=== PATIENT | male | born 1955 | race American Indian/Alaskan Native ===

== ENCOUNTER 2017-05-21 16:51 | Emergency (ER) | payer MEDICARE ==
[~2017-05-21] VITALS: Ht 170.2 cm; Wt 65.8 kg
[~2017-05-21 16:51] MED LIST: ACET325 PO; ASPI81EC PO; CRUTCH3 USE; CYCL10 PO; DIAZ5 PO; HYDACE5 PO; IBUP400 PO; IBUP600 PO; IBUP800 PO; LEVFLO500 PO; METCAR500 PO; NAPR500 PO; OTC COLD MED; PRED20 PO; SULTRISS PO; TRAM50 PO; Ultram50 MG PO; Zofran4 MG PO
[2017-05-21] MEDS ORDERED: CLEAR EYES COOL15 ML TOP (18:00)
[2018-02-28] MEDS ORDERED: ERYT1OIN LEFTEYE (18:00)
== END 2017-05-21 18:10 | disposition home or self-care (01) ==
LOC: ER 16:51
DX: H04.209 Unspecified epiphora, unspecified side (principal); F17.200 Nicotine dependence, unspecified, uncomplicated
CPT/HCPCS: 99282

== ENCOUNTER 2018-07-20 18:09 | Emergency (ER) | payer MEDICARE ==
[~2018-07-20] VITALS: Ht 162.6 cm; Wt 68.0 kg
[~2018-07-20 18:09] MED LIST changes: +CLEAR EYES COOL15 ML TOP; +ERYT1OIN LEFTEYE
[2018-07-20] MEDS ORDERED: EAR WAX DROPS15 ML RIGHTEAR (18:38)
== END 2018-07-20 18:41 | disposition home or self-care (01) ==
LOC: ER 18:09
DX: H61.21 Impacted cerumen, right ear (principal); F17.210 Nicotine dependence, cigarettes, uncomplicated
CPT/HCPCS: 69210; 99283

== ENCOUNTER 2018-09-22 17:14 | Emergency (ER) | payer MEDICARE ==
[~2018-09-22] VITALS: Ht 170.2 cm; Wt 61.2 kg
[~2018-09-22 17:14] MED LIST changes: +EAR WAX DROPS15 ML RIGHTEAR
[2018-09-22 17:53] LABS: BASOPHILS ABSOLUTE AUTO 0.07 K/mm3 (0.00-0.23); BASOPHILS PERCENT AUTO 1 % (0-2); EOSINOPHILS ABSOLUTE AUTO 0.45 K/mm3 (0.00-0.68); EOSINOPHILS PERCENT AUTO 5 % (0-6); Hematocrit 47.4 % (37.0-53.0); Hemoglobin 15.3 g/dL (13.5-17.5); IMMATURE GRAN ABSOLUTE AUTO 0.02 K/mm3 (0.00-0.10); IMMATURE GRAN PERCENT AUTO 0 % (0-1); LYMPHOCYTES ABSOLUTE AUTO 3.67 K/mm3 (0.84-5.20); LYMPHOCYTES PERCENT AUTO 42 % (21-46); MONOCYTES ABSOLUTE AUTO 0.68 K/mm3 (0.16-1.47); MONOCYTES PERCENT AUTO 8 % (4-13); Mean Corpuscular HGB Conc 32.3 g/dL (31.5-36.5); Mean Corpuscular Volume 96 fL (80-100); Mean Platelet Volume 10.9 fL (9.1-12.4); NEUTROPHILS ABSOLUTE AUTO 3.84 K/mm3 (1.96-9.15); NEUTROPHILS PERCENT AUTO 44 % (41-73); Platelet Count 244 K/mm3 (150-400); RDW Coefficient Variation 13.7 % (11.7-14.2); RDW Standard Deviation 48.9 fL (35.1-46.3); Red Blood Cell Count 4.93 M/mm3 (4.30-5.90); White Blood Cell Count 8.73 K/mm3 (4.00-11.30)
[2018-09-22 18:31] LABS: Alanine Aminotransfer (ALT/SGP 28 U/L (12-78); Albumin, Blood 4.1 g/dL (3.4-5.0); Alk Phos 78 U/L (50-136); Anion Gap 5 mmol/L (6-16); Aspartate Aminotrans (AST/SGOT 21 U/L (12-37); Bilirubin, Total 0.2 mg/dL (0.1-1.0); Blood Urea Nitrogen 13 mg/dL (8-24); Bun/Creatinine Ratio 22.5 (12.0-20.0); CO2, Blood 29 mmol/L (21-32); Calcium, Blood 9.2 mg/dL (8.5-10.1); Chloride, Blood 106 mmol/L (98-108); Creatinine, Blood 0.58 mg/dL (0.60-1.20); Globulin, Blood 4.1 g/dL (2.2-4.0); Glomerular Filtration Rate >60 (60-); Glucose, Blood 95 mg/dL (70-99); Potassium, Blood 3.9 mmol/L (3.5-5.5); Sodium, Blood 140 mmol/L (136-145); Total Protein, Blood 8.2 g/dL (6.4-8.2); Troponin I <0.015 ng/mL (0.000-0.040)
== END 2018-09-22 19:00 | disposition home or self-care (01) ==
LOC: ER 17:14
PROVIDERS: Physician Assistant
DX: R07.9 Chest pain, unspecified (principal); M54.5 Low back pain; M54.2 Cervicalgia; G89.29 Other chronic pain; F17.210 Nicotine dependence, cigarettes, uncomplicated
CPT/HCPCS: 71046; 80053; 84484; 85025; 93005; 93010; 99285-25

== ENCOUNTER 2019-11-06 06:25 | Emergency (ER) | payer MEDICARE ==
[~2019-11-06] VITALS: Ht 167.6 cm; Wt 72.6 kg
== END 2019-11-06 07:49 | disposition home or self-care (01) ==
LOC: ER 06:25
DX: H02.89 Other specified disorders of eyelid (principal); F17.210 Nicotine dependence, cigarettes, uncomplicated
CPT/HCPCS: 99283

== ENCOUNTER 2020-02-26 18:26 | Emergency (ER) | payer MEDICARE ==
[~2020-02-26] VITALS: Ht 167.6 cm; Wt 79.4 kg
[2020-02-27] MEDS ORDERED: AMOCLA875 PO (11:06)
[2020-02-27] MEDS ORDERED: Norco 5-325 Ta1 EACH PO (11:18)
== END 2020-02-26 20:26 | disposition left against medical advice (07) ==
LOC: ER 18:26
DX: R51.9 Headache, unspecified (principal); R42 Dizziness and giddiness; Z53.21 Procedure and treatment not carried out due to patient leaving prior to being seen by health care provider
CPT/HCPCS: 70486; 99284-25

== ENCOUNTER 2020-02-27 08:53 | Emergency (ER) | payer MEDICARE ==
[~2020-02-27] VITALS: Ht 167.6 cm; Wt 72.6 kg
[2020-02-27] MEDS ORDERED: AMOCLA875 PO (11:06)
[2020-02-27] MEDS ORDERED: Norco 5-325 Ta1 EACH PO (11:18)
== END 2020-02-27 11:56 | disposition home or self-care (01) ==
LOC: ER 08:53
DX: S02.841A Fracture of lateral orbital wall, right side, initial encounter for closed fracture (principal); S02.31XA Fracture of orbital floor, right side, initial encounter for closed fracture; S02.40CA Maxillary fracture, right side, initial encounter for closed fracture; S02.40EA Zygomatic fracture, right side, initial encounter for closed fracture; F17.210 Nicotine dependence, cigarettes, uncomplicated; W51.XXXA Accidental striking against or bumped into by another person, initial encounter; Y92.59 Other trade areas as the place of occurrence of the external cause
CPT/HCPCS: 99283

== ENCOUNTER 2020-03-04 15:56 | Emergency (ER) | payer MEDICARE ==
[~2020-03-04] VITALS: Ht 167.6 cm; Wt 68.0 kg
[~2020-03-04 15:56] MED LIST changes: +AMOCLA875 PO; +Norco 5-325 Ta1 EACH PO
== END 2020-03-04 20:52 | disposition home or self-care (01) ==
LOC: ER 15:56
DX: S00.11XA Contusion of right eyelid and periocular area, initial encounter (principal); F17.210 Nicotine dependence, cigarettes, uncomplicated; X58.XXXA Exposure to other specified factors, initial encounter
CPT/HCPCS: 99282

== ENCOUNTER 2020-05-26 11:22 | Emergency (ER) | payer MEDICARE ==
[~2020-05-26] VITALS: Ht 167.6 cm; Wt 68.0 kg
[2020-05-26] MEDS ORDERED: CEPH500 PO (12:14)
[2020-05-26] MEDS ORDERED: HYDHCL25 PO (12:14)
[2020-05-26] MEDS ORDERED: PERMETHRIN TOP (12:14)
== END 2020-05-26 12:29 | disposition home or self-care (01) ==
LOC: ER 11:22
DX: L30.9 Dermatitis, unspecified (principal); F17.210 Nicotine dependence, cigarettes, uncomplicated
CPT/HCPCS: 99282

== ENCOUNTER 2021-10-29 17:34 | Inpatient (IN) | payer MEDICARE ==
[~2021-10-29] VITALS: Ht 167.6 cm; Wt 81.6 kg
[~2021-10-29 17:34] MED LIST changes: +CEPH500 PO; +HYDHCL25 PO; +PERMETHRIN TOP
[2021-10-29] MEDS ORDERED: ASPI81CH PO (17:50)
[2021-10-29 18:01] LABS: BASOPHILS ABSOLUTE AUTO 0.08 K/mm3 (0.00-0.23); BASOPHILS PERCENT AUTO 1 % (0-2); EOSINOPHILS ABSOLUTE AUTO 0.28 K/mm3 (0.00-0.68); EOSINOPHILS PERCENT AUTO 2 % (0-6); Hematocrit 44.3 % (37.0-53.0); Hemoglobin 14.4 g/dL (13.5-17.5); IMMATURE GRAN ABSOLUTE AUTO 0.03 K/mm3 (0.00-0.10); IMMATURE GRAN PERCENT AUTO 0 % (0-1); LYMPHOCYTES ABSOLUTE AUTO 1.95 K/mm3 (0.84-5.20); LYMPHOCYTES PERCENT AUTO 15 % (21-46); MONOCYTES PERCENT AUTO 6 % (4-13); Mean Corpuscular HGB 29.9 pg (26.0-34.0); Mean Corpuscular HGB Conc 32.5 g/dL (31.5-36.5); Mean Corpuscular Volume 92 fL (80-100); Mean Platelet Volume 10.8 fL (9.1-12.4); NEUTROPHILS ABSOLUTE AUTO 9.74 K/mm3 (1.96-9.15); NEUTROPHILS PERCENT AUTO 76 % (41-73); Platelet Count 245 K/mm3 (150-400); RDW Coefficient Variation 13.3 % (11.7-14.2); RDW Standard Deviation 45.3 fL (35.1-46.3); Red Blood Cell Count 4.82 M/mm3 (4.30-5.90); White Blood Cell Count 12.88 K/mm3 (4.00-11.30)
[2021-10-29 18:15] LABS: Albumin, Blood 3.7 g/dL (3.4-5.0); Bilirubin, Total 0.3 mg/dL (0.1-1.0); Bun/Creatinine Ratio 14.6 (12.0-20.0); Calcium, Blood 9.6 mg/dL (8.5-10.1); Creatinine, Blood 0.89 mg/dL (0.60-1.20); Globulin, Blood 3.8 g/dL (2.2-4.0); Potassium, Blood 3.6 mmol/L (3.5-5.5); Total Protein, Blood 7.5 g/dL (6.4-8.2)
[2021-10-29 22:39] LABS: Prothrombin Time Results 11.5 Sec (9.7-11.5)
[2021-10-29 22:40] LABS: Anti-Xa UFH, PHA Monitoring >1.50 IU/mL
--- NOTE | 2021-10-30 04:37 | NUR ---
shift summary pt rested well through the night. alert and oriented, able to make needs known. cooperative with plan of care. sats >90% on room air. tele reads nsr 68. no c/o chest pain through night, although nitro tablets at bedside in case. vss. independent in room. been npo since midnight for possible angio. cardiology consulted, and planning for echo in am. call light within reach, bed in lowest position. will continue to monitor.
[2021-10-30 04:44] LABS: BASOPHILS ABSOLUTE AUTO 0.05 K/mm3 (0.00-0.23); BASOPHILS PERCENT AUTO 0 % (0-2); EOSINOPHILS ABSOLUTE AUTO 0.19 K/mm3 (0.00-0.68); EOSINOPHILS PERCENT AUTO 2 % (0-6); Hematocrit 37.8 % (37.0-53.0); Hemoglobin 12.5 g/dL (13.5-17.5); IMMATURE GRAN ABSOLUTE AUTO 0.03 K/mm3 (0.00-0.10); IMMATURE GRAN PERCENT AUTO 0 % (0-1); LYMPHOCYTES ABSOLUTE AUTO 2.53 K/mm3 (0.84-5.20); LYMPHOCYTES PERCENT AUTO 20 % (21-46); MONOCYTES ABSOLUTE AUTO 0.82 K/mm3 (0.16-1.47); MONOCYTES PERCENT AUTO 7 % (4-13); Mean Corpuscular HGB 30.4 pg (26.0-34.0); Mean Corpuscular HGB Conc 33.1 g/dL (31.5-36.5); Mean Corpuscular Volume 92 fL (80-100); Mean Platelet Volume 10.6 fL (9.1-12.4); NEUTROPHILS ABSOLUTE AUTO 8.91 K/mm3 (1.96-9.15); NEUTROPHILS PERCENT AUTO 71 % (41-73); Platelet Count 207 K/mm3 (150-400); RDW Coefficient Variation 13.3 % (11.7-14.2); RDW Standard Deviation 45.1 fL (35.1-46.3); Red Blood Cell Count 4.11 M/mm3 (4.30-5.90); White Blood Cell Count 12.53 K/mm3 (4.00-11.30)
[2021-10-30 05:03] LABS: Albumin, Blood 3.2 g/dL (3.4-5.0); Bilirubin, Total 0.5 mg/dL (0.1-1.0); Bun/Creatinine Ratio 22.7 (12.0-20.0); Calcium, Blood 8.7 mg/dL (8.5-10.1); Creatinine, Blood 0.84 mg/dL (0.60-1.20); Globulin, Blood 3.2 g/dL (2.2-4.0); Total Protein, Blood 6.4 g/dL (6.4-8.2)
[2021-10-30 05:19] LABS: Creatine Kinase MB 28.4 ng/mL (0.0-3.6); Creatine Kinase MB Index 7.9 (0.0-4.0)
--- NOTE | 2021-10-30 07:34 | NUR ---
CARE ASSUMPTION PT A&O X4. VSS. SPO2 > 92% ON RA. MONITOR SHOWING SB, HR 50's. PT STATES LAST EPISODE OF CHEST PAIN "YESTERDAY" & REPORTS CURRENT 05/19 "SORE" SENSATION IN LEFT UPPER CHEST. PT STATING "IT'S NOTHING LIKE IT WAS YESTERDAY. PT NPO FOR POSSIBLE ANGIO TODAY. HEPARIN GTT INFUSING PER ORDERS.
--- NOTE | 2021-10-30 10:38 | NUR ---
Echocardiogram completed.
[2021-10-30 10:47] LABS: SARS-Cov-2 (COVID-19) PCR, MMC NEGATIVE (NEGATIVE)
--- NOTE | 2021-10-30 11:02 | NUR ---
GONE TO PROCEDURE PT GONE TO DIRECTOR OF HOUSING FOR ANGIO @ APPROX 1030.
--- NOTE | 2021-10-30 13:27 | NUR ---
RETURN FROM PROCEDURE PT BROUGHT BACK TO RM @ APPROX 1230. PT A&O X4, SLIGHTLY DROWSY. R RADIAL SITE W/ TR BAND IN PLACE W/ SOME BLEEDING FROM SITE OBSERVED W/ HC STAFF. NO NEW BLEEDING NOTED. PT C/O 5/10 CHEST PAIN ON ARRIVAL BACK TO UNIT, THEN REPORTING PAIN INCREASE TO "SHARP" 8/10 L CHEST PAIN. 25MCG PRN IV FENTANYL GIVEN PER EMAR. PT THEN SNORING SHORTLY AFTER ADMINISTRATION. CALL TO MD HAMILTON TO VERIFY HEPARIN GTT CONTINUATION W/ INSTRUCTION TO DC HEPARIN GTT. 1L NS GTT INFUSING PER ORDERS. MD HAMILTON ALSO MADE AWARE OF PT CONTINUED CP W/ INSTRUCTION FOR POST ANGIO EKG. EKG DONE & PLACED IN CHART. PT FAMILY/FRIENDS AT BEDSIDE.
--- NOTE | 2021-10-30 17:39 | NUR ---
SHIFT SUMMARY PT A&O X4. VSS. SPO2 > 92% ON RA. MONITOR SHOWING HR 45-70's. PT GONE FOR ANGIO THIS AM, BACK THIS AFTERNOON W/ R RADIAL ACCESS SITE W/ TR BAND & ARM BOARD IN PLACE. TR BAND RECOVERED WNL THIS SHIFT, NOW REMOVED W/ TRANSPARENT DRESSING IN PLACE & ARM BOARD IN PLACE. PT CONTINUES TO C/O CHEST PAIN. CHEST PAIN UP TO 8/10 POST ANGIO, MEDICATED W/ PRN IV FENTANYL PER EMAR W/ PT REPORT OF PAIN DECREASE TO 3/10. PT NOW REPORTING CP DOWN TO 2/10. PRN PO TYLENOL GIVEN PER EMAR/PT REQUEST. HEPARIN GTT DC'd POST ANGIO PER MD ORDER. NS GTT INFUSING PER ORDER. BED ALARM ON D/T PT GETTING OOB W/OUT ASSISTANCE & GETTING CAUGHT IN CORDS/LINES. PT ALSO REQUIRING REMINDING OF R WRIST RESTRICTIONS POST ANGIO.
[2021-10-31 03:48] LABS: BASOPHILS ABSOLUTE AUTO 0.03 K/mm3 (0.00-0.23); BASOPHILS PERCENT AUTO 0 % (0-2); EOSINOPHILS ABSOLUTE AUTO 0.15 K/mm3 (0.00-0.68); EOSINOPHILS PERCENT AUTO 1 % (0-6); Hematocrit 36.4 % (37.0-53.0); IMMATURE GRAN ABSOLUTE AUTO 0.02 K/mm3 (0.00-0.10); IMMATURE GRAN PERCENT AUTO 0 % (0-1); LYMPHOCYTES ABSOLUTE AUTO 2.12 K/mm3 (0.84-5.20); LYMPHOCYTES PERCENT AUTO 19 % (21-46); MONOCYTES ABSOLUTE AUTO 0.87 K/mm3 (0.16-1.47); MONOCYTES PERCENT AUTO 8 % (4-13); Mean Corpuscular HGB 30.5 pg (26.0-34.0); Mean Corpuscular Volume 92 fL (80-100); Mean Platelet Volume 10.9 fL (9.1-12.4); NEUTROPHILS ABSOLUTE AUTO 7.73 K/mm3 (1.96-9.15); NEUTROPHILS PERCENT AUTO 71 % (41-73); Platelet Count 178 K/mm3 (150-400); RDW Coefficient Variation 13.2 % (11.7-14.2); RDW Standard Deviation 45.1 fL (35.1-46.3); Red Blood Cell Count 3.94 M/mm3 (4.30-5.90); White Blood Cell Count 10.92 K/mm3 (4.00-11.30)
[2021-10-31 04:05] LABS: Bun/Creatinine Ratio 21.8 (12.0-20.0); Calcium, Blood 8.5 mg/dL (8.5-10.1); Creatinine, Blood 0.6 mg/dL (0.60-1.20); Potassium, Blood 4.2 mmol/L (3.5-5.5)
--- NOTE | 2021-10-31 05:27 | NUR ---
SHIFT SUMMARY PT RESTED WELL THROUGH THE NIGHT. ALERT AND ORIENTED, ABLE TO MAKE NEEDS KNOWN. COOPERATIVE WITH PLAN OF CARE. SATS >90% ON ROOM AIR. TELE READS SINUS KELLEN/NSR. NO C/O CHEST PAIN. R RADIAL SITE LOOKS C/D/I. VOIDING INDEPENDENTLY IN ROOM. MORNING CXR IN CHART. VSS. CALL LIGHT WITHIN REACH, BED IN LOWEST POSITION. WILL CONTINUE TO MONITOR.
[2021-10-31] MEDS ORDERED: ATOR40TA PO (13:37)
[2021-10-31] MEDS ORDERED: CLOP75 PO (13:38)
[2021-10-31] MEDS ORDERED: Prinivil10 MG PO (13:39)
[2021-10-31] MEDS ORDERED: NICO21TP TOP (13:40)
[2021-10-31] MEDS ORDERED: METO50ER PO (13:40)
[2021-10-31] MEDS ORDERED: NITR.4SL SL (13:42)
--- NOTE | 2021-10-31 17:20 | NUR ---
DISHCARGE SUMMARY: PATIENT HAS BEEN WHEELED OUT BY [facility] AT 1408. PATIENT ACCOMPANIED BY FRIENDS, PATIENT AND FRIENDS COMPLETELY UNDERSTOOD DISCHARGE INSTRUCTIONS COMPLETELY WITH NO FURTHER QUESTIONS COMMENTS OR CONCERNS. PATIENT HAS NO CHEST PIAIN, SOB, IS ANXIOUS NAD EXCITED TO LEAVE. PATIENT IS AWAITING A CALLBACK FROM [facility] FOR PCP VISIT WITH PUJA BARRIENTOS UNDERSTOOD THE IMPORTANCE OF MEDICATION ADHERENCE. PATIENT HAD IV'S REMOVED AND TELEMETRY REMOVED, NO FURTHER CONCERNS FROM PATIENT OR THIS ELECTRIC PILE DRIVER OPERATOR.
== END 2021-10-31 14:16 | disposition home or self-care (01) | DRG 247 ==
LOC: ER 17:34 → PCU 21:11
PROVIDERS: Family Medicine; Internal Medicine Cardiovascular Disease; Internal Medicine Interventional Cardiology; Physician Assistant; ADMIT Internal Medicine
PROC: 4A023N7 Measurement of Cardiac Sampling and Pressure, Left Heart, Percutaneous Approach (ICD-10-PCS; principal; 2021-10-30)
PROC: 027034Z Dilation of Coronary Artery, One Artery with Drug-eluting Intraluminal Device, Percutaneous Approach (ICD-10-PCS; 2021-10-30)
PROC: B2151ZZ Fluoroscopy of Left Heart using Low Osmolar Contrast (ICD-10-PCS; 2021-10-30)
PROC: B2111ZZ Fluoroscopy of Multiple Coronary Arteries using Low Osmolar Contrast (ICD-10-PCS; 2021-10-30)
DX: I21.4 Non-ST elevation (NSTEMI) myocardial infarction (principal); Z20.822 Contact with and (suspected) exposure to COVID-19; F17.210 Nicotine dependence, cigarettes, uncomplicated; G89.29 Other chronic pain; M54.9 Dorsalgia, unspecified; I25.10 Atherosclerotic heart disease of native coronary artery without angina pectoris; M54.2 Cervicalgia; Z71.6 Tobacco abuse counseling; Z79.82 Long term (current) use of aspirin
CPT/HCPCS: 36415; 71045; 76937; 80048; 80053; 82550; 82553; 84484; 85025; 85347; 85520; 85610; 92978; 93005; 93010; 93306; 93458; 96374; 96375; 96376; 99152; 99153; 99285-25; A9270; C1725; C1753; C1761; C1769; C1874; C1887; C1894; C9600; G0378; J0461; J1644; J1885; J2250; J2405; J3010; J7030; J7040; Q9967; U0004

== ENCOUNTER 2022-01-18 23:55 | Emergency (ER) | payer MEDICARE ==
[~2022-01-18] VITALS: Ht 170.2 cm; Wt 86.2 kg
[~2022-01-18 23:55] MED LIST changes: +ASPI81CH PO; +ATOR40TA PO; +CLOP75 PO; +METO50ER PO; +NICO21TP TOP; +NITR.4SL SL; +Prinivil10 MG PO
== END 2022-01-19 01:45 | disposition home or self-care (01) ==
LOC: ER 23:55
DX: T44.7X1A Poisoning by beta-adrenoreceptor antagonists, accidental (unintentional), initial encounter (principal)
CPT/HCPCS: 99283

== ENCOUNTER 2022-03-11 15:01 | Emergency (ER) | payer MEDICARE ==
[~2022-03-11] VITALS: Ht 170.2 cm; Wt 90.7 kg
== END 2022-03-11 15:57 | disposition home or self-care (01) ==
LOC: ER 15:01
DX: H61.23 Impacted cerumen, bilateral (principal); F17.210 Nicotine dependence, cigarettes, uncomplicated; Z79.899 Other long term (current) drug therapy; Z79.82 Long term (current) use of aspirin
CPT/HCPCS: A9270

== ENCOUNTER → 2022-06-15 | Outpatient (CLI) | payer MEDICARE ==
[2022-06-15 18:38] LABS: BASOPHILS ABSOLUTE AUTO 0.08 K/mm3 (0.00-0.23); BASOPHILS PERCENT AUTO 1 % (0-2); EOSINOPHILS ABSOLUTE AUTO 0.79 K/mm3 (0.00-0.68); EOSINOPHILS PERCENT AUTO 8 % (0-6); Hematocrit 41.9 % (37.0-53.0); Hemoglobin 13.4 g/dL (13.5-17.5); IMMATURE GRAN ABSOLUTE AUTO 0.02 K/mm3 (0.00-0.10); IMMATURE GRAN PERCENT AUTO 0 % (0-1); LYMPHOCYTES ABSOLUTE AUTO 2.19 K/mm3 (0.84-5.20); LYMPHOCYTES PERCENT AUTO 21 % (21-46); MONOCYTES ABSOLUTE AUTO 0.94 K/mm3 (0.16-1.47); MONOCYTES PERCENT AUTO 9 % (4-13); Mean Corpuscular HGB 29.6 pg (26.0-34.0); Mean Corpuscular Volume 93 fL (80-100); Mean Platelet Volume 12.3 fL (9.1-12.4); NEUTROPHILS PERCENT AUTO 61 % (41-73); Platelet Count 233 K/mm3 (150-400); RDW Coefficient Variation 14.5 % (11.7-14.2); Red Blood Cell Count 4.53 M/mm3 (4.30-5.90); White Blood Cell Count 10.42 K/mm3 (4.00-11.30)
[2022-06-15 21:17] LABS: Albumin, Blood 3.6 g/dL (3.4-5.0); Bilirubin, Total 0.4 mg/dL (0.1-1.0); Bun/Creatinine Ratio 23.7 (12.0-20.0); Calcium, Blood 9.3 mg/dL (8.5-10.1); Creatinine, Blood 0.76 mg/dL (0.60-1.20); Globulin, Blood 3.5 g/dL (2.2-4.0); Potassium, Blood 4.2 mmol/L (3.5-5.5); Total Protein, Blood 7.1 g/dL (6.4-8.2)
== END | disposition home or self-care (01) ==
LOC: LAB 15:45 → LAB SHORT 15:45
PROVIDERS: Nurse Practitioner Family
DX: I10 Essential (primary) hypertension (principal); R73.03 Prediabetes
CPT/HCPCS: 80053; 83036; 85025

== ENCOUNTER 2022-10-27 22:51 | Emergency (ER) | payer MEDICARE ==
[~2022-10-27] VITALS: Ht 167.6 cm; Wt 74.8 kg
[2022-10-28 01:36] VITALS: BP 112/73
[2022-10-28] MEDS ORDERED: BENZ100A PO (01:56)
[2022-10-28] MEDS ORDERED: PRED20 PO (01:56)
== END 2022-10-28 02:09 | disposition home or self-care (01) ==
LOC: ER 22:51
DX: R04.2 Hemoptysis (principal); J20.9 Acute bronchitis, unspecified; J42 Unspecified chronic bronchitis; I25.2 Old myocardial infarction; F17.290 Nicotine dependence, other tobacco product, uncomplicated; Z95.5 Presence of coronary angioplasty implant and graft; Z79.82 Long term (current) use of aspirin; Z79.899 Other long term (current) drug therapy
CPT/HCPCS: 71046; 99283-25; A9270; J7512

== ENCOUNTER → 2023-03-11 | Outpatient (CLI) | payer MEDICARE ==
[~2023-03-11] MED LIST changes: +BENZ100A PO
[2023-03-11 17:54] LABS: BASOPHILS ABSOLUTE AUTO 0.06 K/mm3 (0.00-0.23); BASOPHILS PERCENT AUTO 1 % (0-2); EOSINOPHILS ABSOLUTE AUTO 0.66 K/mm3 (0.00-0.68); EOSINOPHILS PERCENT AUTO 9 % (0-6); Hematocrit 40.4 % (37.0-53.0); Hemoglobin 13.1 g/dL (13.5-17.5); IMMATURE GRAN ABSOLUTE AUTO 0.01 K/mm3 (0.00-0.10); IMMATURE GRAN PERCENT AUTO 0 % (0-1); LYMPHOCYTES ABSOLUTE AUTO 2.44 K/mm3 (0.84-5.20); LYMPHOCYTES PERCENT AUTO 33 % (21-46); MONOCYTES ABSOLUTE AUTO 0.65 K/mm3 (0.16-1.47); MONOCYTES PERCENT AUTO 9 % (4-13); Mean Corpuscular HGB 30.2 pg (26.0-34.0); Mean Corpuscular HGB Conc 32.4 g/dL (31.5-36.5); Mean Corpuscular Volume 93 fL (80-100); NEUTROPHILS ABSOLUTE AUTO 3.67 K/mm3 (1.96-9.15); NEUTROPHILS PERCENT AUTO 49 % (41-73); Platelet Count 215 K/mm3 (150-400); RDW Coefficient Variation 13.6 % (11.7-14.2); RDW Standard Deviation 47.1 fL (35.1-46.3); Red Blood Cell Count 4.34 M/mm3 (4.30-5.90); White Blood Cell Count 7.49 K/mm3 (4.00-11.30)
[2023-03-11 20:48] LABS: Albumin, Blood 3.6 g/dL (3.4-5.0); Albumin/Globulin Ratio 1.1 (0.8-1.8); Bilirubin, Total 0.4 mg/dL (0.1-1.0); Bun/Creatinine Ratio 19.7 (12.0-20.0); Calcium, Blood 9.1 mg/dL (8.5-10.1); Creatinine, Blood 0.76 mg/dL (0.60-1.20); Globulin, Blood 3.3 g/dL (2.2-4.0); Potassium, Blood 4.2 mmol/L (3.5-5.5); Total Protein, Blood 6.9 g/dL (6.4-8.2)
== END ==
LOC: LAB 17:09 → LAB SHORT 17:09
PROVIDERS: Nurse Practitioner Family
DX: I10 Essential (primary) hypertension (principal); R73.01 Impaired fasting glucose
CPT/HCPCS: 80053; 83036; 85025

== ENCOUNTER 2024-01-30 12:11 | Emergency (ER) | payer MEDICARE ==
[~2024-01-30] VITALS: Ht 167.6 cm; Wt 95.2 kg
[~2024-01-30 12:11] MED LIST changes: +AZIT250 PO; +DELTASONE20 MG PO; +LOSARTAN POTASS25 M2 PO; +Ventolin/Prove6.7 GM
[2024-01-30] MEDS ORDERED: Ketorolac Tromethamine 15mg Vial IV ONE (12:45)
[2024-01-30 12:47] LABS: BASOPHILS ABSOLUTE AUTO 0.05 K/mm3 (0.00-0.23); BASOPHILS PERCENT AUTO 1 % (0-2); EOSINOPHILS ABSOLUTE AUTO 0.39 K/mm3 (0.00-0.68); EOSINOPHILS PERCENT AUTO 6 % (0-6); Hematocrit 43.4 % (37.0-53.0); Hemoglobin 14.4 g/dL (13.5-17.5); IMMATURE GRAN ABSOLUTE AUTO 0.01 K/mm3 (0.00-0.10); IMMATURE GRAN PERCENT AUTO 0 % (0-1); LYMPHOCYTES ABSOLUTE AUTO 1.86 K/mm3 (0.84-5.20); LYMPHOCYTES PERCENT AUTO 26 % (21-46); MONOCYTES ABSOLUTE AUTO 0.54 K/mm3 (0.16-1.47); MONOCYTES PERCENT AUTO 8 % (4-13); Mean Corpuscular HGB 30.6 pg (26.0-34.0); Mean Corpuscular HGB Conc 33.2 g/dL (31.5-36.5); Mean Corpuscular Volume 92 fL (80-100); NEUTROPHILS ABSOLUTE AUTO 4.21 K/mm3 (1.96-9.15); NEUTROPHILS PERCENT AUTO 60 % (41-73); Platelet Count 250 K/mm3 (150-400); RDW Coefficient Variation 13.6 % (11.7-14.2); RDW Standard Deviation 46.6 fL (35.1-46.3); White Blood Cell Count 7.06 K/mm3 (4.00-11.30)
[2024-01-30 13:00] LABS: Albumin, Blood 3.5 g/dL (3.4-5.0); Albumin/Globulin Ratio 0.9 (0.8-1.8); Bilirubin, Total 0.7 mg/dL (0.1-1.0); Bun/Creatinine Ratio 19.1 (12.0-20.0); Calcium, Blood 9.7 mg/dL (8.5-10.1); Creatinine, Blood 0.68 mg/dL (0.60-1.20); Globulin, Blood 3.8 g/dL (2.2-4.0); Potassium, Blood 4.1 mmol/L (3.5-5.5); Total Protein, Blood 7.3 g/dL (6.4-8.2)
[2024-01-30 14:00] VITALS: BP 113/58
== END 2024-01-30 14:43 | disposition home or self-care (01) ==
LOC: ER 12:11
PROVIDERS: Student in an Organized Health Care Education/Training Program
DX: S39.011A Strain of muscle, fascia and tendon of abdomen, initial encounter (principal); F17.210 Nicotine dependence, cigarettes, uncomplicated; X58.XXXA Exposure to other specified factors, initial encounter; Z79.02 Long term (current) use of antithrombotics/antiplatelets; Z79.899 Other long term (current) drug therapy
CPT/HCPCS: 74177; 80053; 83690; 85025; 93005; 93010; 96374-59; 99284-25; J1885; Q9967

== ENCOUNTER → 2024-02-03 | Outpatient (CLI) | payer MEDICARE ==
[2024-02-03 22:28] LABS: Cholesterol 88 mg/dL (50-200); HDL Cholesterol 44 mg/dL (>39); LDL/HDL RATIO 0.6; Low Density Lipoprotein Chol 26 mg/dL (0-110); Triglycerides 89 mg/dL (30-160); Very Low Density Lipoprot Chol 17 mg/dL (6-32)
== END | disposition home or self-care (01) ==
LOC: LAB 15:09 → LAB SHORT 15:09
PROVIDERS: Nurse Practitioner Family
DX: E78.5 Hyperlipidemia, unspecified (principal); R73.03 Prediabetes
CPT/HCPCS: 80061; 83036

== ENCOUNTER 2024-05-25 08:19 | Inpatient (IN) | payer MEDICARE ==
[~2024-05-25] VITALS: Ht 167.6 cm; Wt 79.0 kg
[~2024-05-25 08:19] MED LIST changes: -ATOR40TA PO; +ATOR40TA PT
[2024-05-25 10:56] LABS: CORONAVIRUS COVID-19 AG Negative (NEGATIVE); INFLUENZA A AG Positive (NEGATIVE); INFLUENZA B AG Negative (NEGATIVE)
[2024-05-25 11:32] LABS: Albumin, Blood 3.7 g/dL (3.4-5.0); Albumin/Globulin Ratio 0.8 (0.8-1.8); Bun/Creatinine Ratio 27.3 (12.0-20.0); Calcium, Blood 8.6 mg/dL (8.5-10.1); Creatinine, Blood 0.66 mg/dL (0.60-1.20); Globulin, Blood 4.5 g/dL (2.2-4.0); Potassium, Blood 5.9 mmol/L (3.5-5.5); Total Protein, Blood 8.2 g/dL (6.4-8.2)
[2024-05-25 11:33] LABS: BASOPHILS ABSOLUTE AUTO 0.05 K/mm3 (0.00-0.23); BASOPHILS PERCENT AUTO 1 % (0-2); EOSINOPHILS PERCENT AUTO 0 % (0-6); Hematocrit 41.6 % (37.0-53.0); IMMATURE GRAN ABSOLUTE AUTO 0.07 K/mm3 (0.00-0.10); IMMATURE GRAN PERCENT AUTO 1 % (0-1); LYMPHOCYTES ABSOLUTE AUTO 0.68 K/mm3 (0.84-5.20); LYMPHOCYTES PERCENT AUTO 6 % (21-46); MONOCYTES ABSOLUTE AUTO 0.53 K/mm3 (0.16-1.47); MONOCYTES PERCENT AUTO 5 % (4-13); Mean Corpuscular HGB Conc 33.7 g/dL (31.5-36.5); Mean Corpuscular Volume 92 fL (80-100); NEUTROPHILS ABSOLUTE AUTO 9.45 K/mm3 (1.96-9.15); NEUTROPHILS PERCENT AUTO 88 % (41-73); Platelet Count 155 K/mm3 (150-400); RDW Coefficient Variation 13.6 % (11.7-14.2); RDW Standard Deviation 46.5 fL (35.1-46.3); Red Blood Cell Count 4.52 M/mm3 (4.30-5.90); White Blood Cell Count 10.78 K/mm3 (4.00-11.30)
[2024-05-25] MEDS ORDERED: Ipratropium/Albuterol SulF 2.5-0.5MG/3 ML Amp INH SCH ×2 (14:00→14:55)
[2024-05-25] MEDS ORDERED: Ondansetron HCl 2 MG / ML 2ML Vial IV PRN (14:00)
[2024-05-25] MEDS ORDERED: FLU VACC TS2024-25(6MOS UP)/PF 45 MCG/0.5 ML SYRINGE IM PRN (14:00)
[2024-05-25] MEDS ORDERED: NS 1,000 ML IV SCH (14:00)
[2024-05-25] MEDS ORDERED: Albuterol 2.5 MG/3 ML VIAL INH PRN (14:55)
[2024-05-25] MEDS ORDERED: MethylPREDNISolone Sod Succ 125 MG Vial IV SCH (15:00)
[2024-05-25] MEDS ORDERED: Azithromycin 250 MG Tab PO SCH (15:00)
[2024-05-25 15:03] LABS: Source, Urine Clean Catch
[2024-05-25 15:10] LABS: Appearance, Urine Clear (Clear); Bilirubin, Urine Neg (Neg); Blood, Urine 4+ (Neg); Color, Urine Yellow (P-Yellow); Glucose Qualitative, Urine Neg (Neg); Ketones, Urine Neg (Neg); Leukocyte Esterase, Urine Neg (Neg); Nitrite, Urine Neg (Neg); Protein, Urine 2+ (Neg); Urobilinogen, Urine 1+ (Normal)
[2024-05-25 15:17] LABS: Bacteria Rare /hpf; Squamous Epithelial Cells Few /hpf (Few); White Blood Cells, Urine 0-2 /hpf (0-5)
[2024-05-25 18:02] LABS: Base Excess Venous -2.9 mmol/L; Bicarbonate Venous 21.8 mmol/L (24.0-30.0); PCO2 Venous 48.9 mmHg (38-42); pH Blood Venous 7.29 (7.34-7.37)
[2024-05-25 18:18] VITALS: BP 114/67
--- NOTE | 2024-05-25 19:29 | NUR ---
LATE ENTRY- PT ADMIT FROM ED, ALERT AND ORIENTED X3-4, PT STATED YEAR 1925. PT RR 24. BP AND 02 SAT WBL. TEMP SLIGHTLY ELEVATED. DROPLET PRECAUTIONS IN PLACE. BED ALARM ON. PT ORIENTED TO CALL LIGHT. 3L NC. REPORT GIVEN TO LOVE RN. PT IS POOR HISTORIAN DUE TO ILLNESS. INDEPENDENT AT BASELINE
[2024-05-25] MEDS ORDERED: Atorvastatin 40 MG Tab PO SCH (21:00)
[2024-05-25] MEDS ORDERED: Oseltamivir Phosphate 75 MG Cap PO SCH (21:00)
[2024-05-25 21:21] VITALS: BP 118/71
[2024-05-26] VITALS (11 sets, daily range): BP systolic 86–118; BP diastolic 55–102
--- NOTE | 2024-05-26 05:25 | NUR ---
SHIFT SUMMARY PT OX3, NOT ORIENTED TO REASON FOR HOSPITALIZATION. CONFUSED AND FORGETFUL AT TIMES, ESPECIALLY UPON AWAKENING. CONTINUOUS PULSE OX ON, OXYGEN WEANED TO 1L NC WITH SATS 91-94%. SATS DOWN TO 87% ON ROOM AIR. PT HAS A MOIST, NONPRODUCTIVE COUGH. PT CURRENTLY SITTING IN RECLINER CHAIR, CHAIR ALARM IN PLACE, CALL LIGHT WITHIN REACH.
[2024-05-26 06:47] LABS: Hematocrit 41.4 % (37.0-53.0); Hemoglobin 13.4 g/dL (13.5-17.5); Mean Corpuscular HGB 30.8 pg (26.0-34.0); Mean Corpuscular HGB Conc 32.4 g/dL (31.5-36.5); Mean Corpuscular Volume 95 fL (80-100); Mean Platelet Volume 11.3 fL (9.1-12.4); Platelet Count 119 K/mm3 (150-400); RDW Coefficient Variation 13.5 % (11.7-14.2); RDW Standard Deviation 47.8 fL (35.1-46.3); Red Blood Cell Count 4.35 M/mm3 (4.30-5.90); White Blood Cell Count 14.95 K/mm3 (4.00-11.30)
[2024-05-26 07:47] LABS: Bun/Creatinine Ratio 35.1 (12.0-20.0); Calcium, Blood 8.3 mg/dL (8.5-10.1); Creatinine, Blood 0.51 mg/dL (0.60-1.20); Potassium, Blood 4.1 mmol/L (3.5-5.5)
[2024-05-26] MEDS ORDERED: Clopidogrel Bisulfate 75 MG Tab PO SCH (09:00)
[2024-05-26] MEDS ORDERED: Enoxaparin 40 MG/0.4 ML SYR SC SCH (09:00)
[2024-05-26] MEDS ORDERED: Metoprolol Succinate 50 MG TABCR PO SCH (09:00)
[2024-05-26 09:07] LABS: Base Excess Venous 0.8 mmol/L; Bicarbonate Venous 24.1 mmol/L (24.0-30.0)
[2024-05-26] MEDS ORDERED: Rocuronium Bromide 10 MG/ML 5ML Injection IV ONE ×2 (12:04→21:48)
[2024-05-26] MEDS ORDERED: Etomidate 2MG / ML 10ML Vial IV ONE (12:04)
[2024-05-26] MEDS ORDERED: Phenylephrine HCl 100 MCG/ML-NS 10MLSYR (1MG/10ML) IV ONE (12:04)
[2024-05-26] MEDS ORDERED: Acetaminophen 325 MG TABLET PO PRN (14:30)
--- NOTE | 2024-05-26 15:29 | NUR ---
PT TACHYCARDIC 180S ATTEMPTED TO NOTIFY MD VIA PHONE, NO ANSWER AT THIS TIME, SUCTION OPERATOR NOTIFED, STAT EKG ORDERED
[2024-05-26] MEDS ORDERED: Metoprolol Tartrate 1 MG/ML 5 ML VIAL IV STA (15:38)
--- NOTE | 2024-05-26 16:02 | NUR ---
PT CURRENTY IN AFIB RVR, DR. WASHINGTON AT BEDSIDE, ABG ORDERED, 5 MG LOPPRESSOR GIVEN, CARDIZEM ORDERED.
[2024-05-26] MEDS ORDERED: Diltiazem HCl 5 MG / ML 5ML Vial IV ONE (16:05)
[2024-05-26 16:08] LABS: PCO2 Arterial 45.9 mmHg (35-45)
[2024-05-26] MEDS ORDERED: NS 500 ML IV STA ×2 (17:08→18:34)
[2024-05-26] MEDS ORDERED: dilTIAZem HCL 30 MG TAB PO PRN (17:20)
[2024-05-26] MEDS ORDERED: dilTIAZem HCL 120 MG CAP.CD PO SCH (18:00)
--- NOTE | 2024-05-26 18:21 | NUR ---
500 CC NS BOLUS ADMINISTERED. PT BP 86/55 MAP 66. PT IS DROWSY, ARROUSBLE- DENIES CHEST PAIN/PRESSURE-DENIES DIZZINESS, HR IN 120S. AWAITING CALL BACK FROM DR. WASHINGTON. HOLDING OSCAR YI FOR NOW.
--- NOTE | 2024-05-26 20:07 | NUR ---
PT TRANSFERED TO PCU 9 FROM [place] [id number]. PT HEART RATE NOT YET CONTROLLED BY INTERVENTIONS ON MEDICAL FLOOR. BLOOD PRESSURE REMAINS SOFT AFTER FIRST 500 CC BOLUS, SPOKE WITH DR. WASHINGTON ABOUT C/O CURRENT CONDITION. MD AGREE THAT PT SHOULD BE TRANSFERED TO PCU. ANOTHER 500 CC BOLUS ORDERED AND ADMINISTERED ON MEDICAL. DR. WASHINGTON ORDERED PRN 30MG PO CARDIZEM BE GIVEN WITH 2ND BOLUS WHILE AWAITING TRANFER. PT IS DROWSY AND ORIENTED X4, 3L NC, BIPAP SENT WITH PT TO PCU 9, RT IS AWARE.
--- NOTE | 2024-05-26 20:22 | NUR ---
PHYSICIAN COMMUNICATION CONTACTED INDUCTION COORDINATION POWER ENGINEER RESIDENT, DR CARPENTER, TO NOTIFY HER THAT SINCE COMING TO PCU 09 FROM [facility] THAT HIS HEART RATE WAS CONSISTENTLY AROUND 102 AND ASKED IF THIS RN SHOULD GO AHEAD AND START THE AMIODARONE DRIP THAT WAS ORDERED, OR HOLD OFF FOR NOW. DR CARPENTER SAID TO HOLD OFF FOR NOW AND TO START IT IF THE PATIENT'S RATE SUSTAINS OVER 110. PATIENT IS ALERT AND ORIENTED X4 AND DENIES ANY PAIN OR SHORTNESS OF BREATH. WILL CONTINUE TO MONITOR. CALL LIGHT WITHIN REACH.
[2024-05-26] MEDS ORDERED: Propofol 10mg/ml 20 ml Vial (Procedural) IV ONE (21:48)
[2024-05-27] VITALS (19 sets, daily range): BP systolic 80–125; BP diastolic 44–105
--- NOTE | 2024-05-27 05:51 | NUR ---
SHIFT SUMMARY PATIENT ALERT AND ORIENTED X4. HAD NO COMPLAINTS OF PAIN OR SHORTNESS OF BREATH. ON 3 LITERS O2 VIA NC WHILE AWAKE AND BIPAP FOR SLEEP WITH SPO2 >90%. BLOOD PRESSURE SOFT, MAP >65. PATIENT DID REQUIRE BEING PLACED ON THE AMIODARONE DRIP AT MIDNIGHT HIS AFLUTTER RVR RETURNED. PATIENT SINCE CONVERTED TO SINUS RHYTHM 60-70'S. WILL CONTINUE TO MONITOR. CALL LIGHT WITHIN REACH.
[2024-05-27 09:37] LABS: Hematocrit 32.7 % (37.0-53.0); Hemoglobin 10.6 g/dL (13.5-17.5); Mean Corpuscular HGB 30.7 pg (26.0-34.0); Mean Corpuscular HGB Conc 32.4 g/dL (31.5-36.5); Mean Corpuscular Volume 95 fL (80-100); Platelet Count 128 K/mm3 (150-400); RDW Coefficient Variation 13.7 % (11.7-14.2); RDW Standard Deviation 47.8 fL (35.1-46.3); Red Blood Cell Count 3.45 M/mm3 (4.30-5.90); White Blood Cell Count 9.72 K/mm3 (4.00-11.30)
[2024-05-27 10:01] LABS: Albumin, Blood 2.6 g/dL (3.4-5.0); Anion Gap 12 mmol/L (3-11); Blood Urea Nitrogen 38 mg/dL (8-24); Bun/Creatinine Ratio 83.7 (12.0-20.0); CO2, Blood 25 mmol/L (21-32); Calcium, Blood 8.1 mg/dL (8.5-10.1); Chloride, Blood 104 mmol/L (98-108); Creatinine, Blood 0.45 mg/dL (0.60-1.20); Glomerular Filtration Rate 113 (60-); Glucose, Blood 148 mg/dL (70-99); Phosphorus, Blood 1.1 mg/dL (2.5-4.9); Potassium, Blood 4.2 mmol/L (3.5-5.5); Sodium, Blood 137 mmol/L (136-145); Thyroid Stimulating Hormone 0.885 uIU/mL (0.360-4.800)
--- NOTE | 2024-05-27 11:00 | NUR ---
UPDATE PT CALLED THIS RN TO ROOM. PT COMPLAINING OF BURNING CHEST PAIN AT THE CENTER OF HIS CHEST 11/16. O2 SATS LOW 80'S ON 3L NC. O2 TITRATED TO 5L NC TO MAINTAIN SATS >90%. DR. WASHINGTON AT BEDSIDE WITH NEW ORDERS.
[2024-05-27] MEDS ORDERED: dilTIAZem HCL 120 MG CAP.CD PO SCH (11:45)
[2024-05-27] MEDS ORDERED: Pantoprazole Sodium 40 MG Injection IV SCH (11:45)
--- NOTE | 2024-05-27 12:00 | NUR ---
UPDATE HR CONVERTED TO AFLUTTER WITH HR UP TO 180'S. PT CONTINUES TO COMPLAIN OF CHEST PAIN. BP STABLE. DR. WASHINGTON CALLED AND NOTIFIED. DR. WASHINGTON AT BEDSIDE WITH NEW ORDERS. EKG DONE. LABS DRAWN. AFTER MEDICATION ADMINISTRATION, PT REPORTS CHEST PAIN IS NOW GONE. WILL CONTINUE TO MONITOR
[2024-05-27] MEDS ORDERED: FentaNYL Citrate 50 MCG/ML 2 ML Injection IV ONE (12:05)
[2024-05-27 12:13] LABS: Hematocrit 33.1 % (37.0-53.0)
--- NOTE | 2024-05-27 13:33 | NUR ---
UPDATE PT COMPLAINS OF CHEST PAIN 8/10 IN THE CENTER OF HIS CHEST THAT IS BURNING. HR CONTINUES TO BE AFLUTTER 160'S. DR. WASHINGTON CALLED AND NOTIFIED AND STATES SHE WILL PUT IN ORDERS
[2024-05-27] MEDS ORDERED: Morphine Sulfate 4 MG/1 ML Injection IV STA (13:35)
[2024-05-27] MEDS ORDERED: Potassium Phosphate Dibasic 30 MM in Dextrose 5% 500 ML IV STA (13:43)
[2024-05-27] MEDS ORDERED: Digoxin 0.25 MG/ML 2ML Amp IV SCH (14:00)
[2024-05-27] MEDS ORDERED: FentaNYL Citrate 50 MCG/ML 2 ML Injection IV PRN (14:00)
[2024-05-27 15:13] LABS: PO2 Arterial 32 mmHg (80-100); pH Blood Arterial 7.38 (7.35-7.45)
[2024-05-27 15:39] LABS: Hematocrit 30.4 % (37.0-53.0); Hemoglobin 10.2 g/dL (13.5-17.5)
[2024-05-27] MEDS ORDERED: Furosemide 10 MG / ML 2ML Vial IV ONE (15:45)
--- NOTE | 2024-05-27 17:02 | NUR ---
SHIFT SUMMARY PT REMAINS ALERT AND ORIENTED. PT CONTINUES TO REMAIN IN AFLUTTER 130'S THIS EVENING. BP STABLE. PT DENIES CP THIS EVENING, BUT STATES HE FEELS "AWFUL". PT UP MULTIPLE TIMES THROUGHOUT THE SHIFT TO THE BATHROOM OR BSC NEEDED. PT DID HAVE 3 BM THIS SHIFT WITH MAROON COLOR. PT REPOSITIONING HIMSELF IN THE BED. FAMILY MEMBER MARIANA CALLED AND UPDATED THIS SHIFT PT REQUESTED. AMIO GTT INFUSING PER ORDERS. WILL REPORT OFF TO ONCOMING RN
[2024-05-27] MEDS ORDERED: Diltiazem HCl 5 MG / ML 5ML Vial IV ONE (20:15)
[2024-05-27 20:16] LABS: Base Excess Venous 2.3 mmol/L; Bicarbonate Venous 26.1 mmol/L (24.0-30.0); PCO2 Venous 37.9 mmHg (38-42); pH Blood Venous 7.45 (7.34-7.37)
[2024-05-27] MEDS ORDERED: LORazepam 2 MG/ML 1ML Injection IV ONE (20:20)
[2024-05-27] MEDS ORDERED: Amiodarone HCl 200 MG Tab PO SCH (21:00)
[2024-05-27] MEDS ORDERED: dexmedeTOMIDine 100 ML IV SCH (21:10)
[2024-05-27 21:17] LABS: Magnesium, Blood 1.6 mg/dL (1.6-2.4)
[2024-05-27 21:18] LABS: Hematocrit 26.3 % (37.0-53.0); Hemoglobin 8.8 g/dL (13.5-17.5)
[2024-05-27 21:20] LABS: Anion Gap 10 mmol/L (3-11); Blood Urea Nitrogen 39 mg/dL (8-24); Bun/Creatinine Ratio 70.8 (12.0-20.0); CO2, Blood 27 mmol/L (21-32); Calcium, Blood 7.7 mg/dL (8.5-10.1); Chloride, Blood 101 mmol/L (98-108); Creatinine, Blood 0.55 mg/dL (0.60-1.20); Digoxin (Lanoxin) 4.87 ug/mL (0.80-2.00); Glomerular Filtration Rate 107 (60-); Glucose, Blood 171 mg/dL (70-99); Potassium, Blood 4.3 mmol/L (3.5-5.5); Sodium, Blood 134 mmol/L (136-145)
[2024-05-27] MEDS ORDERED: Magnesium Sulf 2 GM/Water 50ML 50 ML IV STA (21:32)
--- NOTE | 2024-05-27 22:00 | NUR ---
ASSUMPTION OF CARE NOTE A/Ox4 AND ABLE TO MAKE HIS NEEDS KNOWN, VERY ANXIOUS. PT STATING, "IM NOT GOING TO MAKE IT!". CARDIAC, PT IN AFIB/AFLUTTER WITH HR RANGING 180-200'S. SBP RANGING 100-110'S. PT DENIES CP OR PRESSURE, BUT ENDORSES THAT HIS HEART IS "RACING". AMIO gtt INFUSING PER EMAR. RESPIRATORY, RR RANGING 25-30'S MAINTAINING SPO2 >92% ON 3-4L NC. DENIES SOB, BUT BREATHING NOTED TO BE LABORED. RT ATTEMPTED TO PLACED PT ON BiPAP, PT COULD NOT TOLERATE MASK. DOSE OF IV DIG AND PO AMIO GIVEN PER EMAR. ICU WHEAT AND OATS FLAKE MILLER AND DR. CARPENTER TO ROOM TO EVALUATE PT. RATE NOW RANGING 160-180'S, BUT BP REMAINS STABLE. ORDERS FOR STAT CHEST XRAY AND MAG RECHECK PER MD. DR MILLER TO BEDSIDE TO EVALUATE. ORDERS FOR 10MG CARDIZEM IV AND 0.5 MG IV ATIVAN WITH INITATION OF BiPAP AGAIN. PER MD, PT TO BE TRANSFERRED TO ICU FOR PRECEDEX IF PT NOT ABLE TO TOLERATE BiPAP. MEDS GIVEN PER MD ORDER. HR DECREASED TO 130-160'S. PT WAS NOT ABLE TO TOLERATE BiAPAP. PT THEN TRANSFERRED TO ICU 7. BEDSIDE REPORT GIVEN TO TARIFF COUNSEL YAN LIZARRAGA.
--- NOTE | 2024-05-27 22:13 | NUR ---
CALL TO PT PULLING AT BIPAP. VERY AGITATED AND TRYING TO CLIMB OUT OF BED. PRECEDEX AT 1.5MCQ. TWO STAFF AT BEDSIDE TRYING TO REDIRECT. CALL TO DR MILLER, RECEIVED ORDER FOR ZYPREXA
[2024-05-27] MEDS ORDERED: OLANZapine 10 MG Vial ONE (22:14)
[2024-05-27] MEDS ORDERED: OLANZapine 10 MG Vial IM ONE (22:15)
[2024-05-28] VITALS (62 sets, daily range): BP systolic 59–135; BP diastolic 29–92
--- NOTE | 2024-05-28 00:20 | NUR ---
THIS RN ASSUMED CARE OF PT AT 2124. PT WAS ALERT AND ORIENTED X4, PT WAS EXTREMELY ANXIOUS, NOT BEING COOPERATIVE, REFUSING TO WEAR BIPAP SATTING IN THE 88% DROPPING LOW 80%. PT SOUNDED COURSE/ DIMINSIHED, CXR WAS DONE IN THE PCU BEFORE ARRIVAL TO ICU AND DID NOT SEE ANYTHING SIGNIFICANT ON THE CXR. PT HEART RATE WAS IN THE 140s, BLOOD PRESSURE WAS STABLE, PT ALSO STARTED ON A PRECEDEX DRIP DUE ANXIETY AND BEING UNCOOPERATIVE. PT BLOOD PRESSURE HAS BEEN SENSITIVE TO PRECEDEX BUT RECOVERS WELL. THIS RN SPOKE WITH ABOUT NEXT STEPS IF HEART RATE DOES NOT IMPROVE, PROVIDER SAID TO WAIT THROUGHOUT THE NIGHT UNLESS HEART RATE SUSTAINS >140s, OF RIGHT NOW PT HEART RATE IN THE 120s. PROVIDER SAID ALL MEDS GIVEN PRIOR TO ICU MAY NEED TIME TO REACH THERAPEUTIC EFFECT. PT ALSO NEEDS SUCTION IN BACK OF THROAT AND TRIED ORAL SUCTION, NG SUCTION AND WAS UNSUCCESSFUL. PT STILL SUPER ANXIOUS AND REFUSING BIPAP, PROVIDER AWARE. NO OTHER INTERVENTIONS AT THIS TIME. PLAN OF CARE CONTINUED.
[2024-05-28] MEDS ORDERED: Lidocaine 2% Jelly Uro-Jet UR ONE (02:25)
[2024-05-28] MEDS ORDERED: OLANZapine 10 MG Vial IM ONE (02:25)
[2024-05-28] MEDS ORDERED: NS 500 ML IV ONE (02:32)
[2024-05-28] MEDS ORDERED: propofoL 100 ML IV PRN (02:45)
[2024-05-28 03:38] LABS: Hematocrit 23.9 % (37.0-53.0); Mean Corpuscular HGB 31.3 pg (26.0-34.0); Mean Corpuscular HGB Conc 33.5 g/dL (31.5-36.5); Mean Corpuscular Volume 93 fL (80-100); Mean Platelet Volume 11.2 fL (9.1-12.4); Platelet Count 97 K/mm3 (150-400); RDW Coefficient Variation 13.5 % (11.7-14.2); RDW Standard Deviation 46.3 fL (35.1-46.3); Red Blood Cell Count 2.56 M/mm3 (4.30-5.90); White Blood Cell Count 1.89 K/mm3 (4.00-11.30)
[2024-05-28] MEDS ORDERED: Diltiazem HCl 5 MG / ML 5ML Vial IV ONE (03:45)
[2024-05-28 03:49] LABS: Albumin, Blood 2.3 g/dL (3.4-5.0); Anion Gap 10 mmol/L (3-11); Blood Urea Nitrogen 37 mg/dL (8-24); Bun/Creatinine Ratio 63.8 (12.0-20.0); CO2, Blood 27 mmol/L (21-32); Calcium, Blood 7.4 mg/dL (8.5-10.1); Chloride, Blood 104 mmol/L (98-108); Creatinine, Blood 0.58 mg/dL (0.60-1.20); Glomerular Filtration Rate 105 (60-); Glucose, Blood 152 mg/dL (70-99); Phosphorus, Blood 2.8 mg/dL (2.5-4.9); Potassium, Blood 4.8 mmol/L (3.5-5.5); Sodium, Blood 136 mmol/L (136-145)
--- NOTE | 2024-05-28 03:51 | NUR ---
AT AROUND 0230 PT WAS IN RESPIRATORY DISTRESS, WAS NOTIFIED AND CAME BEDSIDE TO ASSESS PT. DECIDED TO INTUBATE PT. PT WAS INTUBATED AT 0245, ETT 7.5, 23 @ GUMS WITH POSITIVE COLOR CHANGE, CHEST RISE AND BREATH SOUNDS BILATERAL. PT WAS GIVEN ETOM, ROCC, 500 NS BOLUS AND PHEN AT 0249. VENT SETTINGS ARE RR 18, TV 450, 5 PEEP AND 55% FIO2. PT IS BEING SEDATED WITH PROP AND LEVO IS ON STANDBY. NO OTHER INTERVENTIONS AT THIS TIME, PLAN OF CARE CONTINUED.
[2024-05-28] MEDS ORDERED: Hydrogen Peroxide 1.5 % Solution MT SCH (04:00)
[2024-05-28 04:06] LABS: PCO2 Arterial 55.2 mmHg (35-45); PO2 Arterial 75.4 mmHg (80-100); pH Blood Arterial 7.31 (7.35-7.45)
[2024-05-28] MEDS ORDERED: NS 500 ML IV SCH (04:10)
[2024-05-28] MEDS ORDERED: Phenylephrine HCl in 0.9% NaCl 250 ML IV SCH (04:10)
[2024-05-28] MEDS ORDERED: FentaNYL Citrate 50 MCG/ML 2 ML Injection ONE (04:26)
[2024-05-28] MEDS ORDERED: FentaNYL Citrate 50 MCG/ML 2 ML Injection IV ONE (04:35)
[2024-05-28] MEDS ORDERED: Pantoprazole Sodium 40 MG in NS 50 ML IV SCH (05:15)
--- NOTE | 2024-05-28 05:28 | NUR ---
PT SUMMARY PT CAME OVER FROM PCU DUE TO HEART RATE BEING IN THE 170s, PT HAS BEEN ON AN AMIO DRIP ALL DAY, WAS GIVEN DILT IVP, PO AMIO, PO DILT AND DIGOXIN. UPON ARRIVAL PT WAS VERY ANXIOUS AND UNCOOPERATIVE, STARTED PT ON PRECEDEX. PT BECAME CLINICALLY WORSE OVERNIGHT PT STARTED DESATTING IN 80s WHILE ON HIGH FLOW NC AND PT IS REFUSING TO WEAR BIPAP. AT 0245 PT WAS INTUBATED, AFTER INTUBATION PT HEART RATE WENT BACK UP INTO THE 170s AND WAS NOTIFIED, STARTED ON DANIEL INSTEAD OF LEVO FOR HEART RATE. PLACED A CENTRAL LINE IN THE RIGHT IJ AND SAID TO WAIT ON ART-LINE TO SEE IF DANIEL HELPS. PT HEART RATE STILL IN THE 150s, IS AWARE. PT OG IS PUTTING OUT BRIGHT RED BLOOD, IS ALSO AWARE, NEXT H&H IS TO BE CHECKED AT 0900. NO NEW ORDERS AT THIS TIME. PLAN OF CARE CONTINUED.
[2024-05-28 06:11] LABS: International Normalized Ratio 0.99; Prothrombin Time Results 10.6 Sec (9.7-11.5)
[2024-05-28] MEDS ORDERED: Vasopressin 20 UNITS in NS 100 ML IV SCH (06:25)
[2024-05-28] MEDS ORDERED: Cetylpyridinium Chloride 1 EA MISC MT SCH (08:00)
[2024-05-28 08:54] LABS: Hematocrit 24.4 % (37.0-53.0); Hemoglobin 8.1 g/dL (13.5-17.5)
[2024-05-28] MEDS ORDERED: Digoxin 0.125 MG Tab PO SCH (09:00)
[2024-05-28] MEDS ORDERED: Acetaminophen 160MG / 5ML 10.15 UDC PT PRN (11:30)
[2024-05-28] MEDS ORDERED: MethylPREDNISolone Sod Succ 40 MG VIAL IV SCH (12:00)
[2024-05-28] MEDS ORDERED: MethylPREDNISolone Sod Succ 125 MG Vial IV SCH (12:00)
[2024-05-28] MEDS ORDERED: Albumin (Human) 25gm/100ml 100 ML IV SCH (12:00)
[2024-05-28] MEDS ORDERED: NS 1,000 ML IV SCH (12:00)
--- NOTE | 2024-05-28 12:01 | NUR ---
BELONGINGS & FAMILY CONTACT NUMBERS IRENE SANCHEZ [employer] BELONGINGS HOME CONSISTING OF ONE SET OF CLOTHES, VEHICLE KEYS AND LANYARD AND WALLET LAURA'S NUMBER IS [phone] UPDATE ON FAMILY INFORMATION BROTHER KRANTHI SANDERS SISTER IN LAW RADHA AT [phone] AND SON SHADY KUMAR
[2024-05-28] MEDS ORDERED: CefTRIAXone Sodium 1,000 MG in NS 100 ML IV SCH (13:00)
[2024-05-28 16:05] LABS: Hematocrit 18.4 % (37.0-53.0); Hemoglobin 6.2 g/dL (13.5-17.5)
--- NOTE | 2024-05-28 16:50 | NUR ---
[employer] CALLED TO NOTIFY STAFF THAT THEY WOULD BE CLOSING THE CASE FOR RIGHT NOW AND IF THE PATIENT IS TO DECLINE FURTHER OR PASS AWAY TO CALL THEM BACK TO REOPEN THE CASE.
--- NOTE | 2024-05-28 16:52 | NUR ---
PT RECIEVED IN THE AM WITH HR UNCONTROLLED. PATIENT AGITATED D/T LOW SEDATION MEDICATION BECAUSE BP SUPPORT COULDN'T KEEP UP. PATIENT SEDATED TO RASS -1/-2 AND AT 0804 PATIENT HR NOTED TO FLIP INTO NSR. FOR BP SUPPORT PATIENT REMAINS ON DANIEL AND VASO FOR PRESSORS; VASO TURNED OFF/ON MULTIPLE TIMES TODAY. DR. GARCIA AT BEDSIDE WITH THE HOPE OF TAKING OFF VASO FIRST. HGB 8.1 IN AM; FOLLOWING 2L NS BOLUS, LABS DRAWN AND HGB RESULTS AT 6.2. CRITICAL RESULT REPORTED TO DR. GARCIA; ORDER TO TRANSFUSE ONE UNIT PRBCS. THROUGHOUT SHIFT, PT AFEBRILE, RASS -1/-2 WHILE ON PROPOFOL. PROTONIX GTT REMAINS. PLAVIX D/C'D FOR GI BLEED. SCDS PLACED ON PATIENT.
[2024-05-28] MEDS ORDERED: Oseltamvir Phosphate 6 MG/ML 1MLORALSYR PT SCH (21:00)
[2024-05-28] MEDS ORDERED: Atorvastatin 40 MG Tab PT SCH (21:00)
[2024-05-28] MEDS ORDERED: Amiodarone HCl 200 MG Tab PT SCH (21:00)
--- NOTE | 2024-05-28 21:07 | NUR ---
THIS RN ASSUMED CARE OF PT AT 1900. PT IS INTUBATED AND SEDATED, RASS -2. PT HEART RATE WENT BACK INTO NORMAL SINUS AROUND 0804 TODAY PER DAY SHIFT, BLOOD PRESSURE STABLE AT 117/62 ON DANIEL AT 170, VASO HAS BEEN TURNED OFF. PT IS VENTILATED AT 18/450/50/5, SATTING >95%, SOUNDS CLEAR/DIMINISHED. ECHO CAME BACK AT 45-50% EF. PT CENTRAL LINE IS CLEAN/DRY AND INTACT, PT OG IS TO LIS AND NO LONGER HAS BLOOD COMING OUT, MORE GREEN BILE LOOKING. PT HGB WAS 6.2 EARLIER TODAY AND RECEIVED 1 UNIT PRBCs THAT FINISHED AT 2046, RECHECK H&H AT 2229. SPEARS IS DRAINING TO GRAVITY WITH GOOD URINE OUTPUT. NO OTHER INTERVENTIONS AT THIS TIME. PLAN OF CARE CONTINUED.
[2024-05-28 22:36] LABS: Hematocrit 23.8 % (37.0-53.0); Hemoglobin 8.2 g/dL (13.5-17.5)
[2024-05-29] VITALS (86 sets, daily range): BP systolic 91–119; BP diastolic 50–84
[2024-05-29] MEDS ORDERED: NS 250 ML IV SCH ×2 (02:15→02:20)
[2024-05-29 03:50] LABS: Hematocrit 22.5 % (37.0-53.0); Hemoglobin 7.7 g/dL (13.5-17.5); Mean Corpuscular HGB 31.4 pg (26.0-34.0); Mean Corpuscular HGB Conc 34.2 g/dL (31.5-36.5); Mean Corpuscular Volume 92 fL (80-100); Mean Platelet Volume 11.9 fL (9.1-12.4); Platelet Count 91 K/mm3 (150-400); RDW Coefficient Variation 13.8 % (11.7-14.2); RDW Standard Deviation 47.1 fL (35.1-46.3); Red Blood Cell Count 2.45 M/mm3 (4.30-5.90); White Blood Cell Count 4.82 K/mm3 (4.00-11.30)
[2024-05-29 04:16] LABS: Albumin, Blood 2.5 g/dL (3.4-5.0); Anion Gap 9 mmol/L (3-11); Blood Urea Nitrogen 37 mg/dL (8-24); Bun/Creatinine Ratio 47.9 (12.0-20.0); CO2, Blood 25 mmol/L (21-32); Calcium, Blood 7.5 mg/dL (8.5-10.1); Chloride, Blood 114 mmol/L (98-108); Creatinine, Blood 0.77 mg/dL (0.60-1.20); Glomerular Filtration Rate 96 (60-); Glucose, Blood 117 mg/dL (70-99); Phosphorus, Blood 1.6 mg/dL (2.5-4.9); Potassium, Blood 4.5 mmol/L (3.5-5.5); Sodium, Blood 143 mmol/L (136-145)
[2024-05-29 04:32] LABS: BAND PERCENT MAN 63 % (0-8); BASOPHILS PERCENT MAN 0 % (0-2); EOSINOPHILS PERCENT MAN 0 % (0-6); LYMPHOCYTES ABSOLUTE MAN 0.19 K/mm3 (0.84-5.20); LYMPHOCYTES PERCENT MAN 4 % (21-46); METAMYELOCYTE ABSOLUTE MAN 0.14 K/mm3 (0.00-0.00); METAMYELOCYTE PERCENT MAN 3 % (0-0); MONOCYTES ABSOLUTE MAN 0.28 K/mm3 (0.16-1.47); MONOCYTES PERCENT MAN 6 % (4-13); MYELOCYTE ABSOLUTE MAN 0.09 K/mm3 (0.00-0.00); MYELOCYTE PERCENT MAN 2 % (0-0); NEUTROPHILS ABSOLUTE MAN 4.09 K/mm3 (1.96-9.15); SEG NEUTROPHILS PERCENT MAN 22 % (41-73); TOTAL CELLS COUNTED 100
--- NOTE | 2024-05-29 06:01 | NUR ---
PT SUMMARY PT BLOOD IS START TO GET A LITTLE LOW MAP >65, DANIEL WAS TITRATED UP TO 180MCG/MIN, WAS NOTIFIED AND GAVE A 250ML BOLUS OF NS. NO OTHER ACUTE EVENTS TO REPORT OVERNIGHT. PLAN OF CARE CONTINUED.
[2024-05-29] MEDS ORDERED: Potassium Phosphate Dibasic 30 MM in Dextrose 5% 500 ML IV STA (08:59)
[2024-05-29] MEDS ORDERED: Digoxin 0.125 MG Tab PT SCH (09:00)
[2024-05-29] MEDS ORDERED: Azithromycin 250 MG Tab PT SCH (09:00)
[2024-05-29 16:18] LABS: Hemoglobin 9.2 g/dL (13.5-17.5)
--- NOTE | 2024-05-29 18:24 | NUR ---
ASSUMED CARE AT 0700. HR NOTED TO FLIP BACK INTO AFIB AT 0730, RATES BETWEEN 105-125. NO NEW ORDERS. PATIENT'S HGB WAS 7.7, DR. WASHINGTON ORDERED ONE UNIT PRBCS, POST INFUSION RECHECK 9.2. NO CLINICAL SIGNS OF BLEEDING. OG TUBE TO LIS PRODUCING <100CCS BILE/BROWN DRAINAGE. SEDATION VACATION PERFORMED, PT FOLLOWING COMMANDS. PROPOFOL REDUCED TO 20MCG/KG/MIN. TITRATED DANIEL DOWN FROM 180MCG TO 80MCG. TMAX 100.
[2024-05-29] MEDS ORDERED: NS 250 ML IV PRN (20:25)
[2024-05-30] VITALS (96 sets, daily range): BP systolic 96–145; BP diastolic 55–108
[2024-05-30 04:12] LABS: Hematocrit 27.4 % (37.0-53.0); Hemoglobin 9.6 g/dL (13.5-17.5); Mean Corpuscular HGB 31.4 pg (26.0-34.0); Mean Corpuscular Volume 90 fL (80-100); Mean Platelet Volume 12.2 fL (9.1-12.4); NRBC ABSOLUTE 0.15 K/mm3 (0.00-0.02); NRBC Auto 1.2 /100 WBC (0.0-0.2); Platelet Count 113 K/mm3 (150-400); RDW Coefficient Variation 14.6 % (11.7-14.2); RDW Standard Deviation 47.7 fL (35.1-46.3); Red Blood Cell Count 3.06 M/mm3 (4.30-5.90); White Blood Cell Count 12.74 K/mm3 (4.00-11.30)
[2024-05-30 04:42] LABS: Albumin, Blood 2.1 g/dL (3.4-5.0); Anion Gap 8 mmol/L (3-11); Blood Urea Nitrogen 28 mg/dL (8-24); Bun/Creatinine Ratio 44.2 (12.0-20.0); CO2, Blood 26 mmol/L (21-32); Calcium, Blood 7.6 mg/dL (8.5-10.1); Chloride, Blood 116 mmol/L (98-108); Creatinine, Blood 0.63 mg/dL (0.60-1.20); Digoxin (Lanoxin) 0.75 ug/mL (0.80-2.00); Glomerular Filtration Rate 102 (60-); Glucose, Blood 121 mg/dL (70-99); Phosphorus, Blood 1.6 mg/dL (2.5-4.9); Potassium, Blood 4.3 mmol/L (3.5-5.5); Sodium, Blood 146 mmol/L (136-145)
[2024-05-30] MEDS ORDERED: Dextrose 5% 500 ML IV ONE (06:00)
--- NOTE | 2024-05-30 06:40 | NUR ---
END OF SHIFT SUMMARY NO ACUTE EVENTS OVERNIGHT. PT IS SEDATED WITH PROPOFOL INFUSING AT 20MCG/KG/MIN; RASS -2; ANSWERS Y/N QUESTIONS APPROPRIATLY. VENT SETTINGS AC/VC 18/450/5/30%. AFEBRILE. HR 100-110; AFIB NOTED. SBP 100'S WITH MAP 70-75; DANIEL INFUSING AT 80MCG/MIN. OG TO LIS WITH BILE/BLOOD OUTPUT AT BEGINING OF SHIFT BUT ONLY BILE NOW; PROTONIX INFUSING. SPEARS IN PLACE AND DRAINING TO GRAVITY. CENTRAL LINE TO RIJ AND POWERGLIDE TO LUE PATENT WITH DRESSINGS C/D/I. WILL REPORT TO AM RN WHEN AVAILABLE.
[2024-05-30] MEDS ORDERED: Sodium Phosphate 20 MM in Dextrose 5% 500 ML IV ONE (06:45)
--- NOTE | 2024-05-30 10:14 | NUR ---
EXTUBATED BY KAREEM RT WITH DR BLANCA AT BEDSIDE APPROX 1010. PATIENT TOLERATED WELL. PLACED ON 5LPM O2 VIA NASAL AND REDUCED TO 2LPM. O2 SATS REMAIN ABOVE 92%. +COUGH, GAG REFLEX. FOLLOW DIRECTIONS. DROWSY, ORIENTED X 4. FOLLOWS DIRECTIONS.AUSCULATED LUNGS RLL COARSE, OTHERWISE DIM/CLEAR. HR 100-110S. AFIB/AFLUTTER. B/P STABLE ON DANIEL AT THIS TIME
[2024-05-30] MEDS ORDERED: Ipratropium/Albuterol SulF 2.5-0.5MG/3 ML Amp INH SCH (12:10)
[2024-05-30] MEDS ORDERED: Albuterol 2.5 MG/3 ML VIAL INH PRN (12:10)
[2024-05-30] MEDS ORDERED: Vancomycin HCL 1,500 MG in NS 250 ML IV SCH (13:30)
[2024-05-30] MEDS ORDERED: Pantoprazole Sodium 40 MG Injection IV SCH (16:30)
[2024-05-30] MEDS ORDERED: Diltiazem HCl 5 MG / ML 5ML Vial IV ONE (17:35)
[2024-05-30] MEDS ORDERED: Metoprolol Tartrate 1 MG/ML 5 ML VIAL IV ONE (18:35)
[2024-05-30 19:17] LABS: Hemoglobin 9.5 g/dL (13.5-17.5)
--- NOTE | 2024-05-30 19:23 | NUR ---
END OF SHIFT SUMMARY PATIENT ALERT AND ORIENTED X4. CALLS APPROPRIATLEY AND ABLE TO MAKE HIS NEEDS KNOWN. PATIENT WENT INTO AFIB RVR APPROX 1715 HR SUSTAINING IN THE 150S AFTER DEEP NASAL SUCTIONING . DR BLANCA NOTIFIED. ORDERS RECIEVED. CURRENTLY AFIB/AFLUTTER HR 110S-120S. RESPONDING WELL TO ORDERED RECENT MEDICATIONS, SEE MAR FOR RECORD. LUNG CLEAR ANTERIORLY AND COARSE IN BILATERL BASES ABDOMEN IS SLIGHTLY DISTENDED AND TENDER WITH PALPATION BUT REMAINS SOFT. SCDS IN PLACE. REPEAT H+H DRAWN AT END OF SHIFT. FAMILY INTO VISIT, UPDATES GIVEN. WEAK COUGH, GAG IS PRESENT. THICK SPUTUM
[2024-05-30] MEDS ORDERED: Metoprolol Tartrate 1 MG/ML 5 ML VIAL IV PRN (19:50)
--- NOTE | 2024-05-30 20:00 | NUR ---
ASSUMED CARE OF PT AT 1900. REPORT RECEIVED AT BEDSIDE. PT PRESENTS IN BED. ALERT AND COOPERATIVE WITH CARE AND ASSESSMENT. PT DENIES COMPLAINTS AT THIS TIME. WEARING OXIMASK WITH FLOW RATE AT 4 L/M AT THIS TIME. HAS RHONCHI SCATTERED THROUGHOUT LUNG HOLLIS. MOIST COUGH. WILL REVIEW CHART AND PLAN OF CARE FOR THIS PT.
--- NOTE | 2024-05-30 23:07 | NUR ---
PT FREQUENTLY REQUESTING WATER. EXPLAINED TO PT THAT HE IS NPO PER MD ORDERS. HAVE PROVIDE SOME WATER TO EVALUATE SWALLOW ABILITY AND FOR MEDICATIONS. PT TEACHING DONE WITH SAFE SWALLOW TECHNIQUES. CHIN TUCK. PT DEMONSTRATES THIS ADEQUATELY. NO COUGH ON SIPS OF WATER. PT DOES COMPLAIN OF BACK PAIN. ORDER FOR TYLENOL WAS PER OGT. THIS ROUTE NOT AVAILABLE. CHANGED TO PO. AWAITING UPDATE FROM PHARMACY. PT NOTED TO SOMEWHAT FREQUENTLY REMOVE HIS OXYGEN MASK. DOES NEED REMINDERS TO LEAVE HIS OXYGEN IN PLACE.
[2024-05-30] MEDS ORDERED: Acetaminophen 325 MG TABLET PO PRN (23:10)
--- NOTE | 2024-05-30 23:51 | NUR ---
PT MEDICATED WITH TYLENOL FOR COMPLAINTS OF BACK PAIN. ALSO MEDICATED WITH 5 MG LOPRESSOR FOR HEART RATE INCREASING TO > 150'S. DR MONEZ AWARE. PENDING RESULTS. PT, AGAIN REMOVES HIS OXYGEN. AND NEEDS TO BE TOLD TO LEAVE THIS IN PLACE.
[2024-05-31] VITALS (65 sets, daily range): BP systolic 86–163; BP diastolic 55–105
[2024-05-31] MEDS ORDERED: Diltiazem HCl 5 MG / ML 5ML Vial IV ONE (00:10)
[2024-05-31] MEDS ORDERED: FentaNYL Citrate 50 MCG/ML 2 ML Injection IV PRN (00:10)
[2024-05-31] MEDS ORDERED: Vancomycin HCL 1,000 MG in NS 250 ML IV SCH (02:00)
[2024-05-31 02:15] LABS: Albumin, Blood 1.9 g/dL (3.4-5.0); Anion Gap 12 mmol/L (3-11); Blood Urea Nitrogen 20 mg/dL (8-24); Bun/Creatinine Ratio 38.2 (12.0-20.0); CO2, Blood 27 mmol/L (21-32); Calcium, Blood 7.8 mg/dL (8.5-10.1); Chloride, Blood 111 mmol/L (98-108); Creatinine, Blood 0.52 mg/dL (0.60-1.20); Glomerular Filtration Rate 108 (60-); Glucose, Blood 114 mg/dL (70-99); Phosphorus, Blood 2.7 mg/dL (2.5-4.9); Sodium, Blood 146 mmol/L (136-145)
--- NOTE | 2024-05-31 02:18 | NUR ---
PT'S HEART RATE HAS BEEN 100'S-120'S AFTER DOSE OF IV CARDIZEM. PT HAS REMAINED AWAKE THROUGH THE NIGHT. HAVE TURNED PT Q 2 HOURS WHICH HE HAS TOLERATED.
[2024-05-31 04:42] LABS: Hematocrit 27.7 % (37.0-53.0); Hemoglobin 9.3 g/dL (13.5-17.5); Mean Corpuscular HGB 31.1 pg (26.0-34.0); Mean Corpuscular HGB Conc 33.6 g/dL (31.5-36.5); Mean Corpuscular Volume 93 fL (80-100); Mean Platelet Volume 11.9 fL (9.1-12.4); NRBC Auto 1.5 /100 WBC (0.0-0.2); Platelet Count 111 K/mm3 (150-400); RDW Coefficient Variation 14.8 % (11.7-14.2); RDW Standard Deviation 50.2 fL (35.1-46.3); Red Blood Cell Count 2.99 M/mm3 (4.30-5.90); White Blood Cell Count 13.03 K/mm3 (4.00-11.30)
--- NOTE | 2024-05-31 07:30 | NUR ---
PT DOES CONTINUE TO SPORATICALY CALLS OUT FOR WATER TO DRINK. EXPLAINED AGAIN TO PT THAT SIPS OF WATER NEED TO BE DONE MINIMALLY. INFORMED PT THAT RN WOULD ASK DR BLANCA THIS MORNING IF PT'S DIET COULD BE ADVANCED TO CLEAR LIQUIDS. REPORT GIVEN TO REX DESHPANDE AND REX TIM
[2024-05-31] MEDS ORDERED: Amiodarone HCl 200 MG Tab PO SCH (09:00)
[2024-05-31] MEDS ORDERED: Metoprolol Tartrate 25 MG Tab PT SCH (11:00)
[2024-05-31] MEDS ORDERED: MethylPREDNISolone Sod Succ 40 MG VIAL IV SCH (11:00)
[2024-05-31] MEDS ORDERED: LORazepam 2 MG/ML 1ML Injection IV ONE (11:45)
--- NOTE | 2024-05-31 16:18 | NUR ---
PATIENT PREPARTED FOR INTUBATION PER DR BLANCA. RT, DR BLANCA AT BEDSIDE. TIME OUT PERFORMED. PATIENT GIVEN 50MCG OF FENTANYL AT 1626 FOLLOWED BY 50MG OF PROPOFOL AT 1627. THEN 50MG OF ROCURONIUM ADMINISTERED AT 1628. INTUBATION SUCCESSFUL ETT 7.5 24CM AT THE UPPER GUMS AT 1630. PLACEMENT CONFIRM VIA VISUALIZATION FROM GLIDE SCOPE, ETCO2 AND BILATERAL LUNG SOUNDS. SATS GREATER THAN 95%. AWAITING CXR.
[2024-05-31] MEDS ORDERED: propofoL 100 ML IV SCH (16:35)
[2024-05-31] MEDS ORDERED: Metoprolol Tartrate 1 MG/ML 5 ML VIAL IV PRN (16:50)
--- NOTE | 2024-05-31 18:43 | NUR ---
SHIFT SUMMARY PATIENT ALERT AND ORIENTED X4 THIS MORNING. PATIENT INTUBATED THIS AFTERNOON AND REMAINS SEDATED AT THIS TIME. PRIOR TO SEDATION PATIENT MOVED HIS EXTREMITIES WELL BUT VISIBLY WEAK. LUNGS: RHONCHI PRESENT, USE OF ACCESSORY MUSCULES AND TACHEPNEA. RESPIRATORY RATE 30-40S MOST OF THE DAY UNTIL PATIENT INTUBATED CARDIAC: AFIB HR 120-150S MOST OF THE DAY, NEW ORDERS RECIEVED SEE JUL. PATIENT CONVERTED TO SINUS RHYTHM APPROX 515PM HR 80S AND CARDIZEM GTT STOPPED GOAL HR REACHED. DOBHOFF PLACED. GENERALIZED TRACE EDEMA. CENTRAL LINE RIJ BLOOD RETURN PRESENT AND FLUSING WELL. AFTER CONVERSION TO SINUS RHYTHM PATIENT HYPOTENSIVE BUT MAP REMAINS ABOVE 65. FAMILY - KRANTHI JUARES
[2024-05-31] MEDS ORDERED: Cetylpyridinium Chloride 1 EA MISC MT SCH (20:00)
--- NOTE | 2024-05-31 20:00 | NUR ---
ASSUMED CARE OF PT AT 1900. REPORT RECEIVED AT BEDSIDE. PT PRESENTS IN BED. INTUBATED. MAINTAINS SATURATIONS > 90 PERCENT. IN NO APPARENT DISTRESS. PROPOFOL FOR SEDATION. WILL REVIEW CHART AND PLAN OF CARE FOR THIS PT.
[2024-05-31] MEDS ORDERED: Metoprolol Tartrate 25 MG Tab PO SCH (21:00)
[2024-06-01] VITALS (78 sets, daily range): BP systolic 91–128; BP diastolic 50–80
[2024-06-01] MEDS ORDERED: Hydrogen Peroxide 1.5 % Solution MT SCH
[2024-06-01 03:11] LABS: Hematocrit 25.7 % (37.0-53.0); Hemoglobin 8.4 g/dL (13.5-17.5); Mean Corpuscular HGB Conc 32.7 g/dL (31.5-36.5); Mean Corpuscular Volume 95 fL (80-100); Mean Platelet Volume 11.8 fL (9.1-12.4); NRBC ABSOLUTE 0.08 K/mm3 (0.00-0.02); NRBC Auto 0.4 /100 WBC (0.0-0.2); Platelet Count 111 K/mm3 (150-400); RDW Coefficient Variation 14.8 % (11.7-14.2); RDW Standard Deviation 52.1 fL (35.1-46.3); Red Blood Cell Count 2.71 M/mm3 (4.30-5.90); White Blood Cell Count 17.93 K/mm3 (4.00-11.30)
[2024-06-01 03:25] LABS: Calcium, Blood 7.9 mg/dL (8.5-10.1); Creatinine, Blood 0.65 mg/dL (0.60-1.20); Magnesium, Blood 2.7 mg/dL (1.6-2.4); Phosphorus, Blood 2.1 mg/dL (2.5-4.9); Potassium, Blood 4.2 mmol/L (3.5-5.5)
--- NOTE | 2024-06-01 06:30 | NUR ---
PT HAS MAINTAINED WITH 25 MCG'S/KG/MIN PROPOFOL FOR SEDATION. HAS HAD SEDATION VACATION FOR APPROX 40 MINUTES THIS MORNING. DURING THIS TIME, PT CONVERTED FROM SINUS RHYTHM TO AFIB RVR WITH RATES 120'S. AFTER PT WAS PLACED BACK TO SEDATION, HE SUBSEQUENTLY CONVERTED BACK TO SINUS RHYTHM. PT HAS HAD A FULL BED BATH AND LINEN CHANGE THIS SHIFT. NO ATTEMPTS TO REACH TOWARDS ETT DURING TIME UNRESTRAINED. PT HAS BEEN SUCTIONED OCCASSIONALLY WITH RETURN OF RUST COLORED SECRETIONS. WILL CONTINUE TO MONITOR PT, AND WILL REPORT OFF TO ONCOMING RN.
[2024-06-01] MEDS ORDERED: Protein Supplement 30 ML UD PT SCH (09:00)
[2024-06-01] MEDS ORDERED: Potassium Phosphate Dibasic 15 MM in Dextrose 5% 250 ML IV STA (09:22)
[2024-06-01] MEDS ORDERED: Digoxin 0.25 MG/ML 2ML Amp IV SCH (10:00)
[2024-06-01] MEDS ORDERED: Metoprolol Tartrate 50 MG Tab PT SCH (13:00)
[2024-06-01 14:03] LABS: Vancomycin, Trough 13.6 ug/mL (5.0-10.0)
[2024-06-01] MEDS ORDERED: Vancomycin HCL 1,250 MG in NS 250 ML IV SCH (14:28)
--- NOTE | 2024-06-01 18:37 | NUR ---
Summary. Pt remains intubated and sedated on propofol. No acute events this shift. Tube feeds resumed. Family updated. See chart for further details.
[2024-06-02] VITALS (47 sets, daily range): BP systolic 94–160; BP diastolic 55–89
[2024-06-02 05:00] LABS: BASOPHILS ABSOLUTE AUTO 0.05 K/mm3 (0.00-0.23); BASOPHILS PERCENT AUTO 0 % (0-2); EOSINOPHILS PERCENT AUTO 0 % (0-6); Hematocrit 26.3 % (37.0-53.0); Hemoglobin 8.6 g/dL (13.5-17.5); IMMATURE GRAN ABSOLUTE AUTO 0.94 K/mm3 (0.00-0.10); IMMATURE GRAN PERCENT AUTO 4 % (0-1); LYMPHOCYTES ABSOLUTE AUTO 0.82 K/mm3 (0.84-5.20); LYMPHOCYTES PERCENT AUTO 3 % (21-46); MONOCYTES ABSOLUTE AUTO 1.08 K/mm3 (0.16-1.47); MONOCYTES PERCENT AUTO 4 % (4-13); Mean Corpuscular HGB Conc 32.7 g/dL (31.5-36.5); Mean Corpuscular Volume 95 fL (80-100); Mean Platelet Volume 12.2 fL (9.1-12.4); NEUTROPHILS ABSOLUTE AUTO 22.62 K/mm3 (1.96-9.15); NEUTROPHILS PERCENT AUTO 89 % (41-73); NRBC ABSOLUTE 0.06 K/mm3 (0.00-0.02); NRBC Auto 0.2 /100 WBC (0.0-0.2); Platelet Count 136 K/mm3 (150-400); RDW Coefficient Variation 14.6 % (11.7-14.2); RDW Standard Deviation 51.4 fL (35.1-46.3); Red Blood Cell Count 2.77 M/mm3 (4.30-5.90); White Blood Cell Count 25.51 K/mm3 (4.00-11.30)
[2024-06-02 05:20] LABS: Albumin, Blood 1.6 g/dL (3.4-5.0); Albumin/Globulin Ratio 0.4 (0.8-1.8); Bilirubin, Total 0.8 mg/dL (0.1-1.0); Bun/Creatinine Ratio 44.4 (12.0-20.0); Creatinine, Blood 0.63 mg/dL (0.60-1.20); Globulin, Blood 4.2 g/dL (2.2-4.0); Magnesium, Blood 2.9 mg/dL (1.6-2.4); Phosphorus, Blood 2.2 mg/dL (2.5-4.9); Potassium, Blood 4.3 mmol/L (3.5-5.5); Total Protein, Blood 5.8 g/dL (6.4-8.2)
[2024-06-02] MEDS ORDERED: Heparin Sodium 5000 Units/ML 1ML MDV SC SCH (08:45)
[2024-06-02] MEDS ORDERED: Digoxin 0.125 MG Tab PT SCH (09:00)
[2024-06-02] MEDS ORDERED: Bisacodyl 10 MG Supp PR PRN (17:20)
[2024-06-02] MEDS ORDERED: Polyethylene Glycol 3350 17 gm PT PRN (17:20)
--- NOTE | 2024-06-02 18:16 | NUR ---
Summary. Pt remains intubated and sedated. No acute changes. Sedation off for several hours today. Pt became more alert, was able to nod head yes/no to questions and follow commands. Propofol back on for agitation/comfort. No vent wean today. Family updated. See chart for further details.
--- NOTE | 2024-06-02 20:58 | NUR ---
BLACK TARRY BM UPDATE- PT HAD FIRST RECORDED BM IN 6 DAYS, MEDIUM BLACK LIQUID TARRY WITH HINTS OF DARK RED LIQUID. THIS FOLLOWING MIRALAX ADMINISTRATION DURING DAYSHIFT.
--- NOTE | 2024-06-02 21:26 | NUR ---
ASSUMPTION OF CARE CARE ASSUMED AT 1900 FROM DAY RN FOLLOWING REPORT. PT LYING IN BED SEDATED AND INTUBATED, IN NO APPARENT DISTRESS. VENT COMPLIANT. SETTINGS ACVC 18 400 30% 7.0. SMALL THICK SECRETIONS OBTAINED DURING DEEP SUCTION. PT SEDATED ON PROPOFOL 25. PROP DECREASED FOR ASSESSMENT. PT OPENED EYES SPONT, AND FOLLOWED COMMANDS AND ANSWERED QUESTIONS WITH HEAD NOD AND HAND SQUEEZE. HR 100-119 SINUS RHYTHM TO SINUS ARRHYTHMIA. SBP 130'S. MIRALAX USED DURING DAY WITH NO REPORTED BM. WILL FOLLOW AND TREAT ACCORDINGLY. SPEARS PATENT AND DRAINING.
[2024-06-03] VITALS (47 sets, daily range): BP systolic 107–144; BP diastolic 52–77
[2024-06-03 01:41] LABS: Stool Occult Blood Guaiac 1 Pos (Neg)
[2024-06-03 05:17] LABS: BASOPHILS ABSOLUTE AUTO 0.04 K/mm3 (0.00-0.23); BASOPHILS PERCENT AUTO 0 % (0-2); EOSINOPHILS PERCENT AUTO 0 % (0-6); Hematocrit 25.1 % (37.0-53.0); IMMATURE GRAN ABSOLUTE AUTO 0.67 K/mm3 (0.00-0.10); IMMATURE GRAN PERCENT AUTO 3 % (0-1); LYMPHOCYTES ABSOLUTE AUTO 1.01 K/mm3 (0.84-5.20); LYMPHOCYTES PERCENT AUTO 5 % (21-46); MONOCYTES ABSOLUTE AUTO 0.78 K/mm3 (0.16-1.47); MONOCYTES PERCENT AUTO 4 % (4-13); Mean Corpuscular HGB 30.7 pg (26.0-34.0); Mean Corpuscular HGB Conc 31.9 g/dL (31.5-36.5); Mean Corpuscular Volume 96 fL (80-100); Mean Platelet Volume 12.2 fL (9.1-12.4); NEUTROPHILS ABSOLUTE AUTO 18.04 K/mm3 (1.96-9.15); NEUTROPHILS PERCENT AUTO 88 % (41-73); NRBC ABSOLUTE 0.03 K/mm3 (0.00-0.02); NRBC Auto 0.1 /100 WBC (0.0-0.2); Platelet Count 144 K/mm3 (150-400); RDW Coefficient Variation 14.7 % (11.7-14.2); RDW Standard Deviation 51.4 fL (35.1-46.3); Red Blood Cell Count 2.61 M/mm3 (4.30-5.90); White Blood Cell Count 20.54 K/mm3 (4.00-11.30)
[2024-06-03 05:59] LABS: Albumin, Blood 1.5 g/dL (3.4-5.0); Albumin/Globulin Ratio 0.4 (0.8-1.8); Bilirubin, Total 0.7 mg/dL (0.1-1.0); Bun/Creatinine Ratio 50.3 (12.0-20.0); Calcium, Blood 7.6 mg/dL (8.5-10.1); Creatinine, Blood 0.58 mg/dL (0.60-1.20); Globulin, Blood 3.8 g/dL (2.2-4.0); Magnesium, Blood 2.9 mg/dL (1.6-2.4); Phosphorus, Blood 2.9 mg/dL (2.5-4.9); Potassium, Blood 4.2 mmol/L (3.5-5.5); Total Protein, Blood 5.3 g/dL (6.4-8.2)
--- NOTE | 2024-06-03 07:40 | NUR ---
PT LYING IN BED SEDATED AND INTUBATED WITH PROPOFOL AT 20. HR SINUS RHYTHM MOST OF SHIFT RATE IN 70'S. BP STABLE ALL NIGHT. VENT SETTINGS UNCHANGED THOUGH SECRETIONS INCREASED TOWARDS LAST THIRD OF SHIFT. TUBE FEED AT 45 WITH 3 BLACK LIQUID TARRY STOOLS THROUGHOUT SHIFT, IN DECREASING SIZE, POSITIVE FOR BLOOD. SPEARS PATENT. REPORT GIVEN TO ONCOMING NURSE.
[2024-06-03] MEDS ORDERED: Amiodarone HCl 200 MG Tab PO SCH (09:00)
[2024-06-03 11:46] LABS: Triglycerides 110 mg/dL (30-160)
[2024-06-03 14:14] LABS: Vancomycin, Trough 19.3 ug/mL (5.0-10.0)
[2024-06-03] MEDS ORDERED: Vancomycin HCL 1,000 MG in NS 250 ML IV SCH (15:00)
[2024-06-03] MEDS ORDERED: Protein Supplement 30 ML UD PT SCH ×2 (18:00→21:00)
--- NOTE | 2024-06-03 18:37 | NUR ---
Summary. Pt continues sedated and intubated. Sedation vacation attempted, pt pulling at lines/tubing, attempted to pull ETT out. Sedation titrated up as a result. No other events during shift. See chart for further details.
--- NOTE | 2024-06-03 20:00 | NUR ---
UPDATE ON CODE STATUS - IN ADMITTING DOCUMENTATION THERE IS MENTION OF DNR STATUS BUT PATIENT WAS ADMITTED FULL CODE. COULD NOT FIND ANY NOTES OR DOCUMENTATION TO EXPLAIN THIS. PT IS CURRENTLY INTUBATED, DOES NOT AFFECT CURRENT CARE, BUT PT HAS BEEN INTUBATED TWICE DURING ADMISSION.
--- NOTE | 2024-06-03 20:00 | NUR ---
ASSUMPTION OF CARE CARE ASSUMED AT 1900 FROM DAY RN FOLLOWING REPORT. PT LYING IN BED SEDATED AND INTUBATED, IN NO APPARENT DISTRESS. VENT COMPLIANT. SETTINGS ACVC 18 400 30% 7.0. LARGE THICK SECRETIONS OBTAINED DURING DEEP SUCTION. PT SEDATED ON PROPOFOL 30. PROP DECREASED FOR ASSESSMENT. PT OPENED EYES SPONT, AND FOLLOWED COMMANDS AND ANSWERED QUESTIONS WITH HEAD NOD AND HAND SQUEEZE. PT NODS YES TO QUESTION OF PAIN. PRN FENTANYL ADMINISTERED. HR 150'S A FLUTTER. SBP 120'S. 2 REPORTED SMEARS DURING DAY SHIFT. WILL INVESTIGATE AND MODIFY BOWEL MEDS NEEDED. SPEARS PATENT AND DRAINING.
[2024-06-04] VITALS (25 sets, daily range): BP systolic 111–153; BP diastolic 56–73
[2024-06-04 03:39] LABS: BASOPHILS ABSOLUTE AUTO 0.03 K/mm3 (0.00-0.23); BASOPHILS PERCENT AUTO 0 % (0-2); EOSINOPHILS ABSOLUTE AUTO 0.01 K/mm3 (0.00-0.68); EOSINOPHILS PERCENT AUTO 0 % (0-6); Hematocrit 25.2 % (37.0-53.0); Hemoglobin 8.2 g/dL (13.5-17.5); IMMATURE GRAN ABSOLUTE AUTO 0.37 K/mm3 (0.00-0.10); IMMATURE GRAN PERCENT AUTO 2 % (0-1); LYMPHOCYTES ABSOLUTE AUTO 0.98 K/mm3 (0.84-5.20); LYMPHOCYTES PERCENT AUTO 4 % (21-46); MONOCYTES ABSOLUTE AUTO 0.96 K/mm3 (0.16-1.47); MONOCYTES PERCENT AUTO 4 % (4-13); Mean Corpuscular HGB 31.2 pg (26.0-34.0); Mean Corpuscular HGB Conc 32.5 g/dL (31.5-36.5); Mean Corpuscular Volume 96 fL (80-100); Mean Platelet Volume 11.6 fL (9.1-12.4); NEUTROPHILS ABSOLUTE AUTO 20.57 K/mm3 (1.96-9.15); NEUTROPHILS PERCENT AUTO 90 % (41-73); NRBC ABSOLUTE 0.03 K/mm3 (0.00-0.02); NRBC Auto 0.1 /100 WBC (0.0-0.2); Platelet Count 181 K/mm3 (150-400); RDW Coefficient Variation 14.6 % (11.7-14.2); RDW Standard Deviation 51.7 fL (35.1-46.3); Red Blood Cell Count 2.63 M/mm3 (4.30-5.90); White Blood Cell Count 22.92 K/mm3 (4.00-11.30)
[2024-06-04 03:44] LABS: Base Excess Venous 6.1 mmol/L; Bicarbonate Venous 29.2 mmol/L (24.0-30.0); PCO2 Venous 49.3 mmHg (38-42)
[2024-06-04 04:09] LABS: Albumin, Blood 1.4 g/dL (3.4-5.0); Albumin/Globulin Ratio 0.3 (0.8-1.8); Bilirubin, Total 0.7 mg/dL (0.1-1.0); Bun/Creatinine Ratio 47.9 (12.0-20.0); Calcium, Blood 7.6 mg/dL (8.5-10.1); Creatinine, Blood 0.59 mg/dL (0.60-1.20); Globulin, Blood 4.1 g/dL (2.2-4.0); Magnesium, Blood 2.6 mg/dL (1.6-2.4); Phosphorus, Blood 2.8 mg/dL (2.5-4.9); Potassium, Blood 4.5 mmol/L (3.5-5.5); Total Protein, Blood 5.5 g/dL (6.4-8.2)
--- NOTE | 2024-06-04 07:24 | NUR ---
PT LYING IN BED SEDATED AND INTUBATED WITH PROPOFOL AT 30. A FLUTTER FIRST 8 HRS OF SHIFT, STARTING AT 150 FOR 2 HOURS AND THEN 90'S FOR NEXT 6. STARTING AT 0300, SINUS RHYTHM RATE IN 70'S AND LOW 80'S. BP STABLE ALL NIGHT. VENT SETTINGS UNCHANGED AND SECRETIONS CONTINUE TO BE THICK. NO CHEST PHYSIO PER RT. PT DOES NOT WANT TO REMAIN INTUBATED; RESTRAINTS IN PLACE. TUBE FEED AT 40 WITH 2 BLACK LIQUID TARRY STOOLS THROUGHOUT SHIFT. SPEARS PATENT. PAIN TREATED WITH MEDICATION TWO TIMES. REPORT GIVEN TO ONCOMING NURSE.
[2024-06-04] MEDS ORDERED: Ipratropium Bromide INH 0.02% 0.5 mg/2.5ML Vial INH SCH (10:45)
--- NOTE | 2024-06-04 18:29 | NUR ---
Summary. Pt continues sedated and intubated. Black tarry stools noted during shift. Rass -2/-1, pt follows commands. No acute events this shift, see chart for further details.
[2024-06-05] VITALS (57 sets, daily range): BP systolic 92–158; BP diastolic 48–73
[2024-06-05 03:40] LABS: BASOPHILS ABSOLUTE AUTO 0.04 K/mm3 (0.00-0.23); BASOPHILS PERCENT AUTO 0 % (0-2); EOSINOPHILS PERCENT AUTO 0 % (0-6); Hematocrit 24.7 % (37.0-53.0); Hemoglobin 8.1 g/dL (13.5-17.5); IMMATURE GRAN ABSOLUTE AUTO 0.25 K/mm3 (0.00-0.10); IMMATURE GRAN PERCENT AUTO 1 % (0-1); LYMPHOCYTES ABSOLUTE AUTO 0.98 K/mm3 (0.84-5.20); LYMPHOCYTES PERCENT AUTO 4 % (21-46); MONOCYTES ABSOLUTE AUTO 0.79 K/mm3 (0.16-1.47); MONOCYTES PERCENT AUTO 3 % (4-13); Mean Corpuscular HGB 31.2 pg (26.0-34.0); Mean Corpuscular HGB Conc 32.8 g/dL (31.5-36.5); Mean Corpuscular Volume 95 fL (80-100); Mean Platelet Volume 11.6 fL (9.1-12.4); NEUTROPHILS ABSOLUTE AUTO 22.04 K/mm3 (1.96-9.15); NEUTROPHILS PERCENT AUTO 91 % (41-73); NRBC ABSOLUTE 0.02 K/mm3 (0.00-0.02); NRBC Auto 0.1 /100 WBC (0.0-0.2); Platelet Count 202 K/mm3 (150-400); RDW Coefficient Variation 14.4 % (11.7-14.2); RDW Standard Deviation 49.9 fL (35.1-46.3)
[2024-06-05 03:56] LABS: Bun/Creatinine Ratio 49.7 (12.0-20.0); Calcium, Blood 7.8 mg/dL (8.5-10.1); Creatinine, Blood 0.58 mg/dL (0.60-1.20); Magnesium, Blood 2.6 mg/dL (1.6-2.4); Phosphorus, Blood 3.3 mg/dL (2.5-4.9); Potassium, Blood 4.7 mmol/L (3.5-5.5)
--- NOTE | 2024-06-05 05:42 | NUR ---
SHIFT SUMMARY PATIENT SLEEPING BUT AROUSABLE TO SOUNDS. INTUBATED WITH ET TUBE 8.5 @25 AT GUMS. VENT SETTING ACVC 18/400/7/30%. LUNGS BILATERALLY COARSE AND DIMINISHED LOWER LOBES. SBP 110-120'S, HR 70-80'S. POWERGLIDE LEFT UPPER ARM AND PERIPHERAL 20G LEFT FOREARM. PROPOFOL RUNNING @ 25MCG/HR. SCD'S ON BILATERTAL CALVES. SPEARS DRAINING TO GRAVITY. TUBE FEEDING RUNNING AT 40MLS WITH 300MLS FLUSH. BILATERAL SOFT WRIST RESTRAINTS ON. CALL LIGHT WITHIN REACH.
[2024-06-05] MEDS ORDERED: Pantoprazole Sodium 40 MG in NS 50 ML IV SCH (09:05)
[2024-06-05 10:05] LABS: Hematocrit 23.9 % (37.0-53.0); Hemoglobin 7.7 g/dL (13.5-17.5)
[2024-06-05] MEDS ORDERED: CALCIUM GLUC IN NACL, ISO-OSM 50 ML IV ONE (10:50)
[2024-06-05 15:00] LABS: Vancomycin, Trough 16.2 ug/mL (5.0-10.0)
[2024-06-05 16:23] LABS: Hematocrit 25.1 % (37.0-53.0); Hemoglobin 8.3 g/dL (13.5-17.5)
[2024-06-05] MEDS ORDERED: Lactated Ringer's 1,000 ML IV SCH (17:10)
--- NOTE | 2024-06-05 17:47 | NUR ---
06/05/24 [id number] Ben August History, Chart, Medications and Allergies reviewed before start of procedure. PT ON ICU MONITORS. ANESTHESIA HERE FOR ADDITIONAL SEDATION. PT INTUBATED.
[2024-06-05] MEDS ORDERED: Pantoprazole Sodium 40 MG Injection IV SCH (19:00)
--- NOTE | 2024-06-05 19:19 | NUR ---
DAY SHIFT SUMMARY PT REMAINED INTUBATED THIS SHIFT HE HAD COPIOUS AMOUNTS OF THICK SECRETIONS FROM HIS ET TUBE AND HE WAS ALSO HAVING BLACK TARRY STOOLS. PT HAD EGD THIS AFTERNOON W DR. PINK, NEW ORDERS PLACED BY DR. PINK. PT HAD TOTAL OF 4 LIQUID BLACK STOOLS THIS SHIFT. PT ON PROTONIX GTT FOR MOST OF THE SHIFT UNTIL EGD. PT'S MONITOR SHOWING SR 60'S-70'S. BP SOFT BUT WNL AND STABLE ALL SHIFT. PT AFEBRILE THIS SHIFT. WILL REPORT TO ONCOMING RN.
--- NOTE | 2024-06-05 21:00 | NUR ---
ASSUMED CARE AT 1900 PT LAYING IN BED SEDATED AND INTUBATED. HE IS SEDATED WITH PROPOFOL INFUSING AT 30MCG/KG/MIN; RASS -2. VENT SETTINGS AC/VC 18/400/7/35%; LARGE AMOUNT OF THICK AGUIAR SECREATIONS SUCTIONED FROM ETT. AFEBRILE. HR 60-70'S. SBP 100'S WITH MAP 65-75. ONE EPISODE OF LARGE DARK BLACK LIQUID STOOL NOTED; RECTAL TUBE PLACED AND IS DRAINING TO GRAVITY. DOBHOFF PLACED AT SHIFT CHANGE BY DAY SHIFT; CHEST XRAY READ BY NIGHT HOSPITALIST WHO CONFIRMED PLACEMENT; TF RESUMED AT 40ML/HR (GAOL) WITH 300ML FLUSH Q4HR. SPEARS IN PLACE AND DRAINING TO GRAVITY. POWERGLIDE TO LUE PATENT WITH DRESSING C/D/I. SEE SHIFT ASSESSMENT FOR FULL ASSESSMENT.
[2024-06-06] VITALS (54 sets, daily range): BP systolic 87–111; BP diastolic 46–80
[2024-06-06] MEDS ORDERED: Etomidate 2MG / ML 10ML Vial IV ONE (02:26)
[2024-06-06 03:47] LABS: BASOPHILS ABSOLUTE AUTO 0.02 K/mm3 (0.00-0.23); BASOPHILS PERCENT AUTO 0 % (0-2); EOSINOPHILS PERCENT AUTO 0 % (0-6); Hematocrit 22.7 % (37.0-53.0); Hemoglobin 7.2 g/dL (13.5-17.5); IMMATURE GRAN ABSOLUTE AUTO 0.11 K/mm3 (0.00-0.10); IMMATURE GRAN PERCENT AUTO 1 % (0-1); LYMPHOCYTES ABSOLUTE AUTO 0.78 K/mm3 (0.84-5.20); LYMPHOCYTES PERCENT AUTO 4 % (21-46); MONOCYTES ABSOLUTE AUTO 0.66 K/mm3 (0.16-1.47); MONOCYTES PERCENT AUTO 3 % (4-13); Mean Corpuscular HGB Conc 31.7 g/dL (31.5-36.5); Mean Corpuscular Volume 95 fL (80-100); Mean Platelet Volume 11.6 fL (9.1-12.4); NEUTROPHILS ABSOLUTE AUTO 17.98 K/mm3 (1.96-9.15); NEUTROPHILS PERCENT AUTO 92 % (41-73); Platelet Count 226 K/mm3 (150-400); RDW Coefficient Variation 13.9 % (11.7-14.2); RDW Standard Deviation 48.1 fL (35.1-46.3); White Blood Cell Count 19.55 K/mm3 (4.00-11.30)
[2024-06-06 04:24] LABS: Alanine Aminotransfer (ALT/SGP 46 U/L (12-78); Albumin, Blood 1.2 g/dL (3.4-5.0); Albumin/Globulin Ratio 0.3 (0.8-1.8); Alk Phos 54 U/L (50-136); Anion Gap 7 mmol/L (3-11); Aspartate Aminotrans (AST/SGOT 44 U/L (12-37); Bilirubin, Total 0.5 mg/dL (0.1-1.0); Blood Urea Nitrogen 34 mg/dL (8-24); Bun/Creatinine Ratio 56.7 (12.0-20.0); CO2, Blood 30 mmol/L (21-32); Calcium, Blood 7.6 mg/dL (8.5-10.1); Chloride, Blood 110 mmol/L (98-108); Digoxin (Lanoxin) 0.89 ug/mL (0.80-2.00); Globulin, Blood 4.1 g/dL (2.2-4.0); Glomerular Filtration Rate 104 (60-); Glucose, Blood 135 mg/dL (70-99); Magnesium, Blood 2.6 mg/dL (1.6-2.4); Phosphorus, Blood 4.5 mg/dL (2.5-4.9); Potassium, Blood 4.7 mmol/L (3.5-5.5); Sodium, Blood 142 mmol/L (136-145); Total Protein, Blood 5.3 g/dL (6.4-8.2)
--- NOTE | 2024-06-06 06:31 | NUR ---
END OF SHIFT SUMMARY NO ACUTE EVENTS OVER NIGHT. PT CONT TO BE SEDATED WITH PROPOFOL INFUSING AT 30MCG/KG/MIN; RASS -2. VENT SETTINGS AC/VC 18/400/7/35%; ETT SECREATIONS DECREASED THE NIGHT WENT ON. AFEBRILE. HR 60'S. SBP 100'S WITH MAP 65-70. RECTAL TUBE IN PLACE AND DRAINING SMALL AMOUNT OF BLACK LIQUID STOOL. JEVIFY INFUSING VIA DOBHOFF AT 40ML/HR (GOAL) WITH 300ML FLUSHES Q4HR. SPEARS IN PLACE AND DRAINING TO GRAVITY. POWERGLIDE TO LUE PATENT WITH DRESSING C/D/I. AM CHEST XRAY COMPLETED. WILL REPORT TO AM RN WHEN AVAILABLE.
--- NOTE | 2024-06-06 18:02 | NUR ---
SHIFT SUMMARY PAIENT INTUBATED AND SEDATED, RASS -2. RESPONSEDS TO VERBAL STIMULI. +GAG REFLEX,COUGH AND SWALLOW. FOLLOWS DIRECTIONS. SBP 100S WITH MAP 60-70S. HR 60S MOSTLY IN SINUS RHYTHM WITH OCCASIONAL RUN OF AFIB/AFLUTTER TYPICALLY AFTER COUGHING. LUNGS CLEAR ANTERIORLY WITH BIBASILAR CRACKLES THIS AM WHICH RESOLVED IN THE LLL THIS EVENING. ABDOMEN IS MILDY DISTENDED, NON TENDER THIS EVENING. SPEARS DRAINING STRAW YELLOW URINE TO GRAVITY RECTAL TUBE IN PLACE WITH BLACK LIQUID OUTPUT, BAG CHANGED AT END OF SHIFT. DOBHOFF IN PLACE CONT TUBE FEEDS TOLERATED WELL. FAMILY UPDATED THIS MORNING OVER THE PHONE.
[2024-06-06 23:14] LABS: Hematocrit 21.7 % (37.0-53.0); Hemoglobin 7.2 g/dL (13.5-17.5)
[2024-06-07] VITALS (28 sets, daily range): BP systolic 89–112; BP diastolic 43–63
[2024-06-07 05:02] LABS: BASOPHILS ABSOLUTE AUTO 0.01 K/mm3 (0.00-0.23); BASOPHILS PERCENT AUTO 0 % (0-2); EOSINOPHILS ABSOLUTE AUTO 0.01 K/mm3 (0.00-0.68); EOSINOPHILS PERCENT AUTO 0 % (0-6); Hematocrit 23.2 % (37.0-53.0); Hemoglobin 7.8 g/dL (13.5-17.5); IMMATURE GRAN PERCENT AUTO 1 % (0-1); LYMPHOCYTES ABSOLUTE AUTO 0.88 K/mm3 (0.84-5.20); LYMPHOCYTES PERCENT AUTO 6 % (21-46); MONOCYTES ABSOLUTE AUTO 0.59 K/mm3 (0.16-1.47); MONOCYTES PERCENT AUTO 4 % (4-13); Mean Corpuscular HGB 31.3 pg (26.0-34.0); Mean Corpuscular HGB Conc 33.6 g/dL (31.5-36.5); Mean Corpuscular Volume 93 fL (80-100); Mean Platelet Volume 11.2 fL (9.1-12.4); NEUTROPHILS ABSOLUTE AUTO 13.49 K/mm3 (1.96-9.15); NEUTROPHILS PERCENT AUTO 89 % (41-73); Platelet Count 261 K/mm3 (150-400); RDW Coefficient Variation 13.8 % (11.7-14.2); Red Blood Cell Count 2.49 M/mm3 (4.30-5.90); White Blood Cell Count 15.08 K/mm3 (4.00-11.30)
[2024-06-07 05:47] LABS: Albumin, Blood 1.2 g/dL (3.4-5.0); Albumin/Globulin Ratio 0.3 (0.8-1.8); Bilirubin, Total 0.4 mg/dL (0.1-1.0); Calcium, Blood 7.8 mg/dL (8.5-10.1); Creatinine, Blood 0.59 mg/dL (0.60-1.20); Globulin, Blood 4.4 g/dL (2.2-4.0); Potassium, Blood 4.2 mmol/L (3.5-5.5); Total Protein, Blood 5.6 g/dL (6.4-8.2)
--- NOTE | 2024-06-07 06:44 | NUR ---
END OF SHIFT REPORT: PT HAS BEEN INTUBATED AND SEDATED THROUGHOUT THE ENTIRE SHIFT. HR HAS BEEN IN THE 70s - 80s. O2 SATS HAVE BEEN 93% AND ABOVE WITH THICK SECRETIONS IN ET TUBE. MAP HAS BEEN 63 AND HIGHER. PT HAS TOLERATED VENT FOR MOST OF NIGHT AND IS ON 25 MCG/KG/HR CURRENTLY. WILL REPORT TO AM RN WHEN AVAILABLE.
[2024-06-07] MEDS ORDERED: Protein Supplement 30 ML UD PT SCH (14:00)
--- NOTE | 2024-06-07 14:35 | NUR ---
Pt taken by OR team at approximately 1400, VS stable at time of transfer.
--- NOTE | 2024-06-07 19:19 | NUR ---
Summary. Pt continues sedated and ventilated. No acute events this shift. Family updated, plan is to have discussion with family members tomorrow during dayshift about plan of care moving forward. Palliative care aware. See chart for further details.
[2024-06-08] VITALS (68 sets, daily range): BP systolic 75–123; BP diastolic 46–64
[2024-06-08 03:37] LABS: BASOPHILS ABSOLUTE AUTO 0.01 K/mm3 (0.00-0.23); BASOPHILS PERCENT AUTO 0 % (0-2); EOSINOPHILS PERCENT AUTO 0 % (0-6); Hematocrit 21.5 % (37.0-53.0); Hemoglobin 7.1 g/dL (13.5-17.5); IMMATURE GRAN ABSOLUTE AUTO 0.04 K/mm3 (0.00-0.10); IMMATURE GRAN PERCENT AUTO 0 % (0-1); LYMPHOCYTES ABSOLUTE AUTO 0.59 K/mm3 (0.84-5.20); LYMPHOCYTES PERCENT AUTO 5 % (21-46); MONOCYTES ABSOLUTE AUTO 0.63 K/mm3 (0.16-1.47); MONOCYTES PERCENT AUTO 5 % (4-13); Mean Corpuscular HGB 31.1 pg (26.0-34.0); Mean Corpuscular Volume 94 fL (80-100); NEUTROPHILS ABSOLUTE AUTO 10.98 K/mm3 (1.96-9.15); NEUTROPHILS PERCENT AUTO 90 % (41-73); Platelet Count 234 K/mm3 (150-400); RDW Coefficient Variation 13.9 % (11.7-14.2); RDW Standard Deviation 47.1 fL (35.1-46.3); Red Blood Cell Count 2.28 M/mm3 (4.30-5.90); White Blood Cell Count 12.25 K/mm3 (4.00-11.30)
[2024-06-08 04:03] LABS: Albumin, Blood 1.1 g/dL (3.4-5.0); Albumin/Globulin Ratio 0.3 (0.8-1.8); Bilirubin, Total 0.6 mg/dL (0.1-1.0); Bun/Creatinine Ratio 51.6 (12.0-20.0); Calcium, Blood 7.1 mg/dL (8.5-10.1); Creatinine, Blood 0.62 mg/dL (0.60-1.20); Globulin, Blood 4.3 g/dL (2.2-4.0); Potassium, Blood 4.5 mmol/L (3.5-5.5); Total Protein, Blood 5.4 g/dL (6.4-8.2)
--- NOTE | 2024-06-08 06:16 | NUR ---
END OF SHIFT: PT IS STILL INTUBATED AND SEDATED AND DID NOT HAVE BREATHING TRIAL OVERNIGHT. PT HAS BEEN RESTING IN ROOM AND NO ACUTE EVENTS OCCURRED OVERNIGHT.
[2024-06-08] MEDS ORDERED: Furosemide 10 MG/ML 4ML Vial IV ONE (09:10)
[2024-06-08] MEDS ORDERED: Albumin Human 50 ML IV ONE (09:15)
[2024-06-08] MEDS ORDERED: Cefepime HCl 2,000 MG in NS 100 ML IV SCH (10:00)
--- NOTE | 2024-06-08 12:02 | NUR ---
PER PC RN SELVIN; SHE HAS SPOKE WITH PT'S BROTHER KRANTHI WHO IS LISTED ON DEMOGRAPHICS. PT HAS TWO SON'S, ONE IN LOCAL. GOALS OF CONVERSATION IS NEEDED WITH PROVIDER AND FAMILY. ELSY BLAIR AND ELSY JACOME TO CONTACT FAMILY TO ARRANGE A TIME FOR MEETING WITH FAMILY AND PROVIDER.
[2024-06-08] MEDS ORDERED: Enoxaparin 40 MG/0.4 ML SYR SC SCH (13:00)
--- NOTE | 2024-06-08 13:36 | NUR ---
MIKIE IS LIGHT ON HIS SEDATION, HE IS ANSWERING QUESTIONS WITH HEAD NODS AND SHAKES, FOCUSING ON PERSON SPEAKING. HE STATES HE WOULD LIKE TO PROCEED WITH THE TRACH, HE STATES HE WOULD LIKE SUPPORT FROM THE FAMILY IN THIS REGARD. HE HAS BEEN ASKED TWICE TODAY TO VERIFY HIS ANSWER.
[2024-06-08 15:44] LABS: Hematocrit 27.5 % (37.0-53.0)
[2024-06-08] MEDS ORDERED: Metoclopramide HCl 5MG / ML 2ML Vial IV PRN (15:45)
[2024-06-08 16:00] LABS: Vancomycin, Trough 21.1 ug/mL (5.0-10.0)
--- NOTE | 2024-06-08 18:40 | NUR ---
MIKIE HAS DECIDED TO HAVE THE TRACH PLACED, PHONE CALL TO FOR CONSULT. PLAN TO SHUT OFF TUBE FEEDING AT 0200 AND NOT GIVE LOVENOX IN THE AM. PT CAME TO CONSENSUS WITH FAMILY IN ROOM DURING MEETING WITH , PT DID SEEM TO BECOME MORE ANXIOUS AFTER DECISION WAS MADE. CONTINUES ON VENTILATOR, CONTINUES WITH LARGE AMOUNT OF AGUIAR SECRETIONS, TF @ GOAL, SPEARS WITH GOOD OUTPUT POST DIURESING, RECTAL TUBE WITH 300ML OUT. SCD'S IN PLACE, HANDS AND FEET REMAIN EDEMATOUS.
--- NOTE | 2024-06-08 19:15 | NUR ---
ASSESSMENT/ASSUMED CARE PT AWAKE. NODDING YES/NO TO QUESTIONS AND FOLLOWING INSTRUCTIONS. PT INTUBATED AND ON MECH VENT. LUNGS CLEAR BUT DECREASED. VENT SETTINGS 18/400/7/35%. SUCTIONED SMALL AMT THICK WHITE SECRECTIONS VIA ET TUBE. ORAL CARE DONE. HEART RATE REGULAR IN THE 70'S. BP STABLE. EDEMA NOTED TO BILAT HANDS, FEET AND SCROTUM. BT+HYPERACTIVE. DOBHOFF TO NARE WITH TUBE FEED JEVITY AT GOAL RATE 45 ML/HR, WITH WATER AT 30 ML Q4HR. DOBHOFF AT 70 CM. SPEARS CATH PATENT DRAINING YELLOW URINE. RECTAL TUBE WITH BROWN LIQUID STOOL. REPOSITIONED RECTAL TUBE. PT REPOSITIONED AND RESTRAINTS CHECKED.
[2024-06-08] MEDS ORDERED: Vancomycin HCL 750 MG in NS 250 ML IV SCH (21:00)
[2024-06-09] VITALS (67 sets, daily range): BP systolic 87–145; BP diastolic 49–68
--- NOTE | 2024-06-09 02:09 | NUR ---
TUBE FEED TUBE FEED STOPPED FOR TRACH PLACEMENT LATER THIS AM
[2024-06-09 04:22] LABS: BASOPHILS ABSOLUTE AUTO 0.01 K/mm3 (0.00-0.23); BASOPHILS PERCENT AUTO 0 % (0-2); EOSINOPHILS PERCENT AUTO 0 % (0-6); Hematocrit 26.3 % (37.0-53.0); Hemoglobin 8.8 g/dL (13.5-17.5); IMMATURE GRAN ABSOLUTE AUTO 0.05 K/mm3 (0.00-0.10); IMMATURE GRAN PERCENT AUTO 0 % (0-1); LYMPHOCYTES ABSOLUTE AUTO 0.38 K/mm3 (0.84-5.20); LYMPHOCYTES PERCENT AUTO 3 % (21-46); MONOCYTES ABSOLUTE AUTO 0.57 K/mm3 (0.16-1.47); MONOCYTES PERCENT AUTO 5 % (4-13); Mean Corpuscular HGB 31.8 pg (26.0-34.0); Mean Corpuscular HGB Conc 33.5 g/dL (31.5-36.5); Mean Corpuscular Volume 95 fL (80-100); Mean Platelet Volume 11.5 fL (9.1-12.4); NEUTROPHILS PERCENT AUTO 92 % (41-73); Platelet Count 259 K/mm3 (150-400); RDW Coefficient Variation 13.7 % (11.7-14.2); RDW Standard Deviation 47.4 fL (35.1-46.3); Red Blood Cell Count 2.77 M/mm3 (4.30-5.90); White Blood Cell Count 12.71 K/mm3 (4.00-11.30)
[2024-06-09 04:38] LABS: International Normalized Ratio 1.05; Prothrombin Time Results 11.2 Sec (9.7-11.5)
[2024-06-09 04:54] LABS: Magnesium, Blood 2.7 mg/dL (1.6-2.4)
[2024-06-09 04:55] LABS: Albumin, Blood 1.5 g/dL (3.4-5.0); Albumin/Globulin Ratio 0.3 (0.8-1.8); Bilirubin, Total 0.4 mg/dL (0.1-1.0); Bun/Creatinine Ratio 65.3 (12.0-20.0); Calcium, Blood 7.5 mg/dL (8.5-10.1); Creatinine, Blood 0.58 mg/dL (0.60-1.20); Globulin, Blood 4.6 g/dL (2.2-4.0); Phosphorus, Blood 3.9 mg/dL (2.5-4.9); Total Protein, Blood 6.1 g/dL (6.4-8.2)
--- NOTE | 2024-06-09 06:08 | NUR ---
SHIFT SUMMARY PT CONT INTUBATED AND ON [facility] VENT. NO CHANGES TO VENT SETTINGS 18/400/7/35%. VSS. TUBE FEEDING STOPPED AT 0200 AND DOBHOFF CLAMPED FOR TRACH PLACEMENT TODAY. PT DENIES PAIN OR DISCOMFORT. TURNED Q2HR. BILAT SOFT WRIST RESTRAINT ON. PT DOES REACH FOR ET TUBE WHEN RESTRAINTS ARE OFF. PROPFOL AT 30 MCQ VIA POWER GLIDE TO LEFT UPPER ARM. SPEARS CATH PATENT AND DRAINING YELLOW URINE. RECTAL TUBE WITH LIQUID BROWN STOOL. REPORT TO ON COMING NURSE
--- NOTE | 2024-06-09 08:06 | NUR ---
CALLED IN THIS AM TO MOVE THE TRACH TO TOMORROW MORNING. WILL COORDINATE WITH THE TELEVISION HOST FOR TIMING. PT INFORMED. HE NODS HIS HEAD IN AGREEMENT. PT FEELING WARM, FAN AT BEDSIDE. VS STABLE, PROPOFOL DOWN TO 20MCG/KG.
[2024-06-09] MEDS ORDERED: Furosemide 10 MG / ML 2ML Vial IV ONE (10:55)
[2024-06-09] MEDS ORDERED: Albumin Human 50 ML IV ONE (11:00)
--- NOTE | 2024-06-09 18:11 | NUR ---
MIKIE HAS DONE WELL TODAY, HE WAS OFF SEDATION FOR SEVERAL HOURS, TOLERATED WELL. WAS ABLE TO COMMUNICATE THROUGH HEAD NODS AND SHAKES. EX-, HUMERA VISITED FOR A SHORT TIME. PT WENT ON SPONTANEOUS, LASTED FOR ABOUT 1 HOUR. HE WAS ABLE TO SHARE WHEN HE WAS HAVING DIFFICULTY BREATHING, WHEN HE WAS TIRED AND WANTED TO REST. PLAN FOR TRACH TOMORROW. WILL STOP TUBE FEEDING TONIGHT AT 0200, HOLD LOVENOX FOR AM. PT ADMITTEDLY ANXIOUS.
--- NOTE | 2024-06-09 20:28 | NUR ---
ASSUMPTION OF CARE ASSUMED CARE OF PATIENT AT 1900. BEDSIDE SHIFT REPORT RECEIVED FROM LEATHA GOODMAN. PT RESTING IN BED INTUBATED AND SEDATED. PROPOFOL INFUSING AT 30MCG/KG/MIN. PT ANSWERS QUESTIONS BY SHAKING/NODDING HEAD, FOLLOWS DIRECTION WHEN PROMPTED. PT WEAK, MOVES ALL EXTREMITIES. HR 60-70'S SINUS, MAP >65. VENT SETTINGS AC/VC 18/400/5/35%, OXYGEN SATURATION >95%. PT HAS LARGE AMOUNTS OF SECRETIONS THROUGH THE ETT, SUCTIONED [place] TIMES SINCE START OF SHIFT WITH LARGE AMOUNT OF THICK WHITE/AGUIAR SECRETIONS. DOBHOFF IN PLACE TO LEFT NARES AT APPROXIMATELY 70CM WITH JEVITY 1.2 INFUSING AT GOAL RATE OF 45MLS/HR WITH 30ML Q4H WATER FLUSH. ABDOMEN SOFT, BOWEL TONES ACTIVE THROUGHOUT. RECTAL TUBE IN PLACE DRAINING BROWN STOOL TO GRAVITY. PIV IN PLACE TO LEFT HAND AND LFA. POWERGLIDE IN PLACE TO BALAJI. BED IN LOWEST POSITION, CARE CONTINUES.
[2024-06-10] VITALS (88 sets, daily range): BP systolic 90–138; BP diastolic 47–66
--- NOTE | 2024-06-10 01:57 | NUR ---
PT UPDATE TF PLACED ON HOLD PER ORDER FOR POSSIBLE PROCEDURE IN THE AM. CARE CONTINUES.
[2024-06-10] MEDS ORDERED: Midazolam HCl 1MG / ML 2ML Vial IV PRN (02:20)
[2024-06-10 04:13] LABS: BASOPHILS ABSOLUTE AUTO 0.01 K/mm3 (0.00-0.23); BASOPHILS PERCENT AUTO 0 % (0-2); EOSINOPHILS ABSOLUTE AUTO 0.03 K/mm3 (0.00-0.68); EOSINOPHILS PERCENT AUTO 0 % (0-6); Hematocrit 24.4 % (37.0-53.0); Hemoglobin 7.9 g/dL (13.5-17.5); IMMATURE GRAN ABSOLUTE AUTO 0.04 K/mm3 (0.00-0.10); IMMATURE GRAN PERCENT AUTO 0 % (0-1); LYMPHOCYTES ABSOLUTE AUTO 0.67 K/mm3 (0.84-5.20); LYMPHOCYTES PERCENT AUTO 7 % (21-46); MONOCYTES ABSOLUTE AUTO 0.61 K/mm3 (0.16-1.47); MONOCYTES PERCENT AUTO 6 % (4-13); Mean Corpuscular HGB 31.3 pg (26.0-34.0); Mean Corpuscular HGB Conc 32.4 g/dL (31.5-36.5); Mean Corpuscular Volume 97 fL (80-100); NEUTROPHILS ABSOLUTE AUTO 8.14 K/mm3 (1.96-9.15); NEUTROPHILS PERCENT AUTO 86 % (41-73); Platelet Count 253 K/mm3 (150-400); RDW Coefficient Variation 14.2 % (11.7-14.2); RDW Standard Deviation 49.5 fL (35.1-46.3); Red Blood Cell Count 2.52 M/mm3 (4.30-5.90)
[2024-06-10 04:33] LABS: International Normalized Ratio 1.07; Prothrombin Time Results 11.4 Sec (9.7-11.5)
[2024-06-10 04:38] LABS: Albumin, Blood 1.4 g/dL (3.4-5.0); Albumin/Globulin Ratio 0.3 (0.8-1.8); Bilirubin, Total 0.4 mg/dL (0.1-1.0); Bun/Creatinine Ratio 62.1 (12.0-20.0); Calcium, Blood 7.9 mg/dL (8.5-10.1); Creatinine, Blood 0.73 mg/dL (0.60-1.20); Globulin, Blood 4.1 g/dL (2.2-4.0); Magnesium, Blood 2.8 mg/dL (1.6-2.4); Phosphorus, Blood 3.4 mg/dL (2.5-4.9); Potassium, Blood 4.5 mmol/L (3.5-5.5); Total Protein, Blood 5.5 g/dL (6.4-8.2)
--- NOTE | 2024-06-10 05:33 | NUR ---
SHIFT SUMMARY NO ACUTE CHANGES THIS SHIFT. PT CONTINUES TO REST IN BED, INTUBATED AND SEDATED. PROPOFOL INFUSING AT 35MCG/KG/MIN. PT OPENS EYES TO VERBAL, ANSWERS QUESTIONS BY SHAKING/NODDING HIS HEAD, AND FOLLOWS DIRECTION WHEN PROMPTED. PT WEAK BUT MOVES ALL EXTREMITIES. PT MEDICATED PER EMAR FOR PAIN AND ANXIETY. HR 50-70'S SINUS, MAP >65. VENT SETTINGS AC/VC 18/400/5/35%, OXYGEN SATURATION >95%. ABDOMEN SOFT, BOWEL TONES ACTIVE THROUGHOUT. DOBHOFF IN PLACE TO LEFT NARES, TF PLACED ON HOLD AT APPROXIMATELY 0200. RECTAL TUBE IN PLACE WITH MINIMAL BROWN OUTPUT. SPEARS IN PLACE PATENT DRAINING YELLOW URINE TO GRAVITY. PIV IN PLACE TO LEFT HAND AND LFA SL. POWERGLIDE IN PLACE TO BALAJI INFUSING PROPOFOL. BED IN LOWEST POSITION, CARE CONTINUES.
[2024-06-10 08:58] LABS: Vancomycin, Trough 20.2 ug/mL (5.0-10.0)
[2024-06-10] MEDS ORDERED: Vancomycin HCL 1,500 MG in NS 250 ML IV SCH (10:00)
[2024-06-10] MEDS ORDERED: Lidocaine HCL 1% 10 ML MDV XX ONE ×2 (10:05)
--- NOTE | 2024-06-10 13:23 | NUR ---
PT AWARE THAT PROCEDURE WAS GOING TO HAPPEN TODAY, NODDED IN AGREEMENT. DISCUSSED OVER THE PHONE WITH BROTHER KRANTHI, WHO IS PROXY. CONSENT SIGNED WITH . , , KATHI,RT, AND MYSELF IN ROOM. PT GIVEN FENTANYL AND VERSED AT 1233, MARQUITA 50 GIVEN AT 1236. BEGAN AT 1246, VENT TO TRACH AT 1248, VS 100%, HR 80, 23 RR, 127/55. PT TOLERATED PROCEDURE WELL. SON MIKIE AND GRANDDAUGHTER BROUGHT IN AT 1320 TO SEE PATIENT. QUESTIONS ANSWERED.
--- NOTE | 2024-06-10 14:56 | NUR ---
MIKIE IS ANSWERING QUESTIONS WITH HEAD NODS AND SHAKES, RECOGNIZES VOICES OF SOME VISITORS. HE IS NOT OPENING HIS EYES, HE IS HAVING A BIT MORE SECRETIONS, BLOODY EXPECTED. ENCOURAGEMENT GIVEN. PT RESPONDS WELL.
[2024-06-10] MEDS ORDERED: Metolazone 5 MG Tab PT ONE (15:00)
[2024-06-10] MEDS ORDERED: Furosemide 10 MG / ML 2ML Vial IV SCH (15:00)
--- NOTE | 2024-06-10 18:51 | NUR ---
MIKIE REMAINS ON PROPOFOL @ 30MCG/KG. HE IS ANSWERING AND FOLLOWING DIRECTIONS. HE TOLERATED THE TRACH PROCEDURE WELL, HE HAS BEEN COUGHING, SECRETIONS HAVE REMAINED BLOOD TINGED. LESS VOLUME OF SECRETIONS THAN PREVIOUSLY. NO OUTPUT VIA THE RECTAL TUBE, GOOD URINE OUTPUT AFTER LASIX DOSING. RIGHT HAND REMAINS PUFFY, FEET REMAIN PUFFY BUT IMPROVED OVER LAST 2 DAYS. LEFT HAND IS NORMAL SIZE. FAMILY VISITED THROUGHOUT THE AFTERNOON.
[2024-06-10] MEDS ORDERED: Sodium Chloride 3% For Inhalation 15 ML VIAL.NEB INH SCH (19:00)
--- NOTE | 2024-06-10 21:11 | NUR ---
ASSUMPTION OF CARE ASSUMED CARE OF PATIENT AT 1900, BEDSDIE SHIFT REPORT RECEIVEDF TAYLA MATT RN. PT RESTING IN BED, NEW TRACH IN PLACE CONNECTED TO VENTILATOR. PROPOFOL INFUSING AT 30MCG/KG/HR. PT NODS/SHAKES HEAD TO ANSWER QUESTIONS AND FOLLOWS DIRECTION WHEN PROMPTED. PT RIGHT ARM APPEARS WEAKER THAN THE LEFT, MOVES ALL EXTREMITIES. PT REACHES TOWARDS FACE/TRACH WITH LEFT HAND. HR 60-70'S SINUS, MAP >65. NEW TRACH SITE CLEAN, SUTURES INTACT. VENT SETTINGS 18/400/5/35%, OXYGEN SATURATION >95%. ABDOMEN SOFT, BOWEL TONES ACTIVE THROUGHOUT. DOBHOFF IN PLACE TO LEFT NARES. RECTAL TUBE IN PLACE WITH MINIMAL LIQUID BROWN OUTPUT. SPEARS IN PLACE PATENT DRAINING YELLOW URINE TO GRAVITY. PIV IN PLACE TO LEFT HAND AND LFA SL. POWERGLIDE IN PLACE TO BALAJI INFUSING PROPOFL. BED IN LOWEST POSITION, CALL LIGHT WITHIN REACH, CARE CONTINUES.
[2024-06-11] VITALS (67 sets, daily range): BP systolic 112–143; BP diastolic 47–77
[2024-06-11 04:04] LABS: BASOPHILS ABSOLUTE AUTO 0.02 K/mm3 (0.00-0.23); BASOPHILS PERCENT AUTO 0 % (0-2); EOSINOPHILS ABSOLUTE AUTO 0.01 K/mm3 (0.00-0.68); EOSINOPHILS PERCENT AUTO 0 % (0-6); Hematocrit 24.3 % (37.0-53.0); Hemoglobin 8.1 g/dL (13.5-17.5); IMMATURE GRAN ABSOLUTE AUTO 0.02 K/mm3 (0.00-0.10); IMMATURE GRAN PERCENT AUTO 0 % (0-1); LYMPHOCYTES ABSOLUTE AUTO 0.66 K/mm3 (0.84-5.20); LYMPHOCYTES PERCENT AUTO 8 % (21-46); MONOCYTES ABSOLUTE AUTO 0.62 K/mm3 (0.16-1.47); MONOCYTES PERCENT AUTO 7 % (4-13); Mean Corpuscular HGB 32.4 pg (26.0-34.0); Mean Corpuscular HGB Conc 33.3 g/dL (31.5-36.5); Mean Corpuscular Volume 97 fL (80-100); Mean Platelet Volume 10.9 fL (9.1-12.4); NEUTROPHILS ABSOLUTE AUTO 7.32 K/mm3 (1.96-9.15); NEUTROPHILS PERCENT AUTO 85 % (41-73); Platelet Count 236 K/mm3 (150-400); RDW Coefficient Variation 14.2 % (11.7-14.2); RDW Standard Deviation 50.3 fL (35.1-46.3); White Blood Cell Count 8.65 K/mm3 (4.00-11.30)
[2024-06-11 04:20] LABS: Bun/Creatinine Ratio 63.4 (12.0-20.0); Calcium, Blood 7.9 mg/dL (8.5-10.1); Creatinine, Blood 0.71 mg/dL (0.60-1.20); Potassium, Blood 4.1 mmol/L (3.5-5.5)
--- NOTE | 2024-06-11 05:50 | NUR ---
SHIFT SUMMARY NO ACUTE CHANGES THIS SHIFT. PT CONTINUES TO REST IN BED, PROPOFOL INFUSING AT 30MCG/KG/HR. PT ANSWERS QUESTIONS BY SHAKING/NODDING HEAD, FOLLOWS DIRECTION WHEN PROMPTED. PT RIGHT ARM APPEARS WEAKER THAN THE LEFT, PT REACHES FOR FACE/TRACH WITH LEFT HAND. HR 60-70'S SINUS, MAP >65. VENT SETTINGS AC/VC 18/400/5/35%, OXYGEN SATURATION >95%. ABDOMEN SOFT, BOWEL TONES ACTIVE THROUGHOUT. DOBHOFF IN PLACE TO LEFT NARES, JEVITY 1.2 INFUSING AT GOAL RATE OF 45MLS/HR WITH 30ML Q4H WATER FLUSH. RECTAL TUBE IN PLACE WITH MINIMAL LIQUID BROWN OUTPUT. SPEARS IN PLACE PATENT DRAINING YELLOW URINE TO GRAVITY. PIV IN PLACE TO LEFT HAND AND LFA SL. POWERGLIDE IN PLACE TO BALAJI INFUSING PROPOFOL. BED IN LOWEST POSITION, CARE CONTINUES.
--- NOTE | 2024-06-11 09:35 | NUR ---
[place] of care: He is resting comfortably on 30 mcgs/kg/min of propofol. Follows commands with some encouragement. Bilat soft limb wrist restraints in place. Vital signs stable on the ventilator: 18/400/5/35% with #8.0 shiley sutured & secure. Dobhoff in place with TF infusing at goal. Garrett catheter patent & draining clear yellow urine. Flexiseal in place. PIVx2 & powerglide in place. Will continue to monitor.
[2024-06-11] MEDS ORDERED: Rocuronium Bromide 10 MG/ML 5ML Injection IV ONE (12:40)
[2024-06-11] MEDS ORDERED: Furosemide 10 MG / ML 2ML Vial IV SCH (14:00)
[2024-06-11] MEDS ORDERED: Potassium Chloride 20 MEQ/15 ML UDC PT ONE (14:00)
[2024-06-11] MEDS ORDERED: Metolazone 5 MG Tab PT ONE (14:00)
--- NOTE | 2024-06-11 18:24 | NUR ---
Shift summary: Weaned from 30 mcgs/kg/min of propofol to 10 mcgs/kg/min per Dr. Stokes. He was calm & cooperative all day, following commands & nodding yes/no appropriately. Vital signs stable, in NSR. Placed on PSV 12/5, 30% & is tolerating well, #8 shiley sutured & secure. Strong cough with productive sputum, thick/rinaldi. TF infusing at goal through dobhoff. Flexiseal with 500cc out. Garrett secure & patent with good diuresis. OOB to chair with lift for 2 hours. PIV x2 & powerglide in place. Will continue to monitor.
--- NOTE | 2024-06-11 20:16 | NUR ---
ASSUMPTION OF CARE ASSUMED CARE OF PATIENT AT 1900, BEDSIDE SHIFT REPORT RECEIVED FROM LEATHA RN. PT RESTING IN BED, ALERT. PROPOFOL INFUSING AT 10MCG/KG/HR. PT ANSWERS QUESTIONS BY SHAKING/NODDING HIS HEAD. PT ALSO APPEARS TO BE ATTEMPTING TO MOUTH WORDS AND MAKE GESTURES WITH HIS HANDS TO COMMUNICATE. PT FOLLOWS DIRECTION WHEN PROMPTED. PT DOES NOT MOVE RIGHT ARM, HOWEVER DIRECTOR OF GIFT PLANNING STRENGTH IS EQUAL BILATERALLY. PT RIGHT ARM MORE EDEMATOUS THAN THE LEFT. PT MOVES LEFT ARM SPONTANEOUSLY. HR 70-80'S SINUS, MAP >65. [address] CONNECTED TO VENT. VENT SETTTINGS SPONTANEUOS 12/5 30%, OXYGEN SATURATION >94%. ABDOMEN SOFT, BOWEL TONES ACTIVE THROUGHOUT. DOBHOFF IN PLACE TO LEFT NARES. JEVITY 1.2 INFUSING AT GOAL RATE OF 45MLS/HR WITH 30ML Q4H WATER FLUSH. RECTAL TUBE IN PLACE DRAINING LIQUID BROWN STOOL. PIV IN PLACE TO LEFT HAND AND LFA SL. POWERGLIDE IN PLACE TO BALAJI INFUSING PROPOFOL. BED IN LOWEST POSITION, CALL LIGHT WITHIN REACH, CARE CONTINUES.
[2024-06-12] VITALS (16 sets, daily range): BP systolic 119–161; BP diastolic 48–78
[2024-06-12 04:32] LABS: BASOPHILS ABSOLUTE AUTO 0.02 K/mm3 (0.00-0.23); BASOPHILS PERCENT AUTO 0 % (0-2); EOSINOPHILS ABSOLUTE AUTO 0.03 K/mm3 (0.00-0.68); EOSINOPHILS PERCENT AUTO 0 % (0-6); Hemoglobin 8.2 g/dL (13.5-17.5); IMMATURE GRAN ABSOLUTE AUTO 0.03 K/mm3 (0.00-0.10); IMMATURE GRAN PERCENT AUTO 0 % (0-1); LYMPHOCYTES ABSOLUTE AUTO 0.73 K/mm3 (0.84-5.20); LYMPHOCYTES PERCENT AUTO 8 % (21-46); MONOCYTES ABSOLUTE AUTO 0.56 K/mm3 (0.16-1.47); MONOCYTES PERCENT AUTO 6 % (4-13); Mean Corpuscular HGB 31.1 pg (26.0-34.0); Mean Corpuscular HGB Conc 32.8 g/dL (31.5-36.5); Mean Corpuscular Volume 95 fL (80-100); Mean Platelet Volume 10.6 fL (9.1-12.4); NEUTROPHILS ABSOLUTE AUTO 7.34 K/mm3 (1.96-9.15); NEUTROPHILS PERCENT AUTO 84 % (41-73); Platelet Count 248 K/mm3 (150-400); RDW Coefficient Variation 14.2 % (11.7-14.2); RDW Standard Deviation 48.5 fL (35.1-46.3); Red Blood Cell Count 2.64 M/mm3 (4.30-5.90); White Blood Cell Count 8.71 K/mm3 (4.00-11.30)
[2024-06-12 04:52] LABS: Bun/Creatinine Ratio 56.7 (12.0-20.0); Calcium, Blood 8.2 mg/dL (8.5-10.1); Creatinine, Blood 0.74 mg/dL (0.60-1.20); Phosphorus, Blood 3.1 mg/dL (2.5-4.9); Potassium, Blood 3.9 mmol/L (3.5-5.5)
--- NOTE | 2024-06-12 05:54 | NUR ---
SHIFT SUMMARY NO ACUTE CHNAGES THIS SHIFT. PT CONTINUES TO REST IN BED, ALERT. PROPOFOL PLACED ON SB THIS AM AROUND 0530. PT OPENS EYES TO VERBAL STIMULI, FOLLOWS DIRECTION WHEN PROMPTED. PT SHAKES/NODS HEAD TO ANSWER QUESTIONS. NO MOVEMENTS OBSERVED WITH RIGHT ARM. RIGHT ARM ALSO MORE EDEMATOUS THAN THE LEFT. PT MOVES LEFT ARM SPONTANEOUSLY. HORIZONTAL DRILL OPERATOR STRENGTH EQUAL IN BOTH UPPER EXTREMITIES. PT MOVES BILATERAL LOWER EXTREMITIES EQUALLY SPONTANEOUSLY. HR 70-80'S SINUS, MAP >65. [address], SUTURES INTACT. SITE C/D. VENT SETTINGS 18/400/5/30%, OXYGEN SATURATION >95%. ABDOMEN SOFT, BOWEL TONES ACTIVE THROUGHOUT. DOBHOFF IN PLACE TO LEFT NARES WITH JEVITY 1.2 INFUSING AT GOAL RATE OF 45MLS/HR WITH 30ML Q4H WATER FLUSH. RECTAL TUBE IN PLACE PATENT DRAINING LIQUID BROWN STOOL. SPEARS IN PLACE PATENT DRAINING YELLOW URINE TO GRAVITY. PIV IN PLACE TO LEFT HAND AND LFA SL. POWERGLIDE IN PLACE TO BALAJI SL. BED IN LOWEST POSITION, CARE CONTINUES.
--- NOTE | 2024-06-12 08:14 | NUR ---
ASSUMED CARE OF PATIENT AT APPROXIMATELY 0700. REPORT RECEIVED FROM REX QUINONES. PT AWAKE IN BED, NONVERBAL BUT OTHERWISE INTERACTING WITH STAFF APPROPRIATELY DURING BEDSIDE REPORT. CONTINUOUS CARDIAC MONITORING IN PLACE SHOWS SR, BP STABLE WITH MAP > 65. [address] WITH VENT SETTINGS OF 18/400/5/30%. SITE IS C/D/I, SUTURES INTACT. O2 SATURATION > 92%. JEVITY INFUSING AT GOAL TO DOBHOFF. PG TO BALAJI AND LEFT PIV's SALINE LOCKED. NO ACUTE NEEDS IDENTIFIED AT THIS TIME. SEE SHIFT ASSESSMENT FOR FULL DETAILS.
[2024-06-12] MEDS ORDERED: Ipratropium/Albuterol SulF 2.5-0.5MG/3 ML Amp INH SCH (09:50)
[2024-06-12 09:57] LABS: Vancomycin, Trough 20.8 ug/mL (5.0-10.0)
[2024-06-12] MEDS ORDERED: Vancomycin HCL 1,250 MG in NS 250 ML IV SCH (10:30)
[2024-06-12] MEDS ORDERED: Loperamide HCl 2 MG Cap PO PRN (10:45)
--- NOTE | 2024-06-12 17:39 | NUR ---
SHIFT SUMMARY PT REMAINED ALERT AND ORIENTED TO PERSON/SELF/FAMILY T/O ENTIRETY OF SHIFT. STILL NONVERBAL D/T TRACH, BUT ABLE TO FOLLOW COMMANDS, MAKE PURPOSEFUL MOVEMENTS, AND MAKE NEEDS KNOWN. AFEBRILE AND DENIES PAIN. CONTINOUS CARDIAC MONITORING IN PLACE SHOWS SR WITH HR IN 70'S-80'S, BP STABLE WITH MAP > 65. AT APPROXIMATELY 1140 PT VENT SETTINGS WERE SWITCHED TO SPONTANEOUS, WHICH PT TOLERATED WELL T/O SHIFT.PT CONTINUES TO HAVE THICK WHITE SECRETIONS OUT WITH SUCTION. SPUTUM CULTURE SENT. SPEARS REMAINS IN PLACE, DRAINING YELLOW URINE TO GRAVITY. RECTAL TUBE REMAINS IN PLACE, 110mL OF WATERY STOOL OUT. DENIES NAUSEA, TOLERATING JEVITY 1.2 AT GOAL OF 45mL/HR. R ARM EDEMA IMPROVED THIS SHIFT. PHOTO OF WOUND TO R NARE TAKEN AND PLACED IN CHART. CHEST CT PENDING. WILL CONTINUE TO MONITOR AND REPORT TO ONCOMING RN.
--- NOTE | 2024-06-12 20:40 | NUR ---
ASSUMPTION ON CARE ASSUMED CARE OF PATIENT AT 1900, BEDSIDE SHIFT REPORT RECEIVED FROM LEATHA RN. PT RESTING IN BED, ALERT. PT NODS/SHAKES HEAD TO ANSWER QUESTIONS, FOLLOWS DIRECTION WHEN PROMPTED. PT MOVES ALL EXTREMITIES. PT ATTEMPTS TO COMMUNICATE BY MOUTHING WORDS/ MAKING HAND GESTURES. PT DENIES PAIN AT TIME OF ASSESMENT. HR 110-120'S SINUS, MAP >65. 8 SHILEY [address]ACH SUTURED IN PLACE, VENT SETTINGS SPONTANEOUS, PEEP 5 FIO2 30%. ABDOMEN SOFT, BOWEL TONES ACTIVE THROUGHOUT. DOBHOFF IN PLACE TO LEFT NARES INFUSING JEVITY 1.2 AT GOAL RATE OF 45MLS/HR WITH 30ML Q4H WATER FLUSH. RECTAL TUBE IN PLACE PATENT DRAINING LIQUID BROWN STOOL TO GRAVITY. SPEARS IN PLACE PATENT DRAINING YELLOW URINE TO GRAVITY. PIV IN PLACE TO LEFT HAND AND LFA SL. POWERGLIDE IN PLACE TO BALAJI SL. BED IN LOWEST POSITION, CARE CONTINUES.
[2024-06-12] MEDS ORDERED: Metoprolol Tartrate 1 MG/ML 5 ML VIAL IV ONE (21:15)
--- NOTE | 2024-06-12 21:18 | NUR ---
PT UPDATE PT HAD RHYTHM CHANGE AT APPROXIMATELY 1999 FROM NSR TO AFIB/FLUTTER WITH A RATE OF 100-120'S. CALL PLACED TO HOSPITALIST REGUARDING THIS. ALL VITALS STABLE. ORDERS RECEIVED, SEE EMAR FOR MORE INFORMATION. CARE CONTINUES.
[2024-06-13] VITALS (21 sets, daily range): BP systolic 100–135; BP diastolic 51–79
[2024-06-13 04:48] LABS: BASOPHILS ABSOLUTE AUTO 0.01 K/mm3 (0.00-0.23); BASOPHILS PERCENT AUTO 0 % (0-2); EOSINOPHILS ABSOLUTE AUTO 0.04 K/mm3 (0.00-0.68); EOSINOPHILS PERCENT AUTO 1 % (0-6); Hematocrit 24.9 % (37.0-53.0); Hemoglobin 8.1 g/dL (13.5-17.5); IMMATURE GRAN ABSOLUTE AUTO 0.02 K/mm3 (0.00-0.10); IMMATURE GRAN PERCENT AUTO 0 % (0-1); LYMPHOCYTES ABSOLUTE AUTO 0.68 K/mm3 (0.84-5.20); LYMPHOCYTES PERCENT AUTO 8 % (21-46); MONOCYTES ABSOLUTE AUTO 0.62 K/mm3 (0.16-1.47); MONOCYTES PERCENT AUTO 7 % (4-13); Mean Corpuscular HGB 31.4 pg (26.0-34.0); Mean Corpuscular HGB Conc 32.5 g/dL (31.5-36.5); Mean Corpuscular Volume 97 fL (80-100); Mean Platelet Volume 10.7 fL (9.1-12.4); NEUTROPHILS ABSOLUTE AUTO 7.02 K/mm3 (1.96-9.15); NEUTROPHILS PERCENT AUTO 84 % (41-73); Platelet Count 240 K/mm3 (150-400); RDW Coefficient Variation 14.1 % (11.7-14.2); RDW Standard Deviation 49.4 fL (35.1-46.3); Red Blood Cell Count 2.58 M/mm3 (4.30-5.90); White Blood Cell Count 8.39 K/mm3 (4.00-11.30)
--- NOTE | 2024-06-13 05:00 | NUR ---
SHIFT SUMMARY NO ACUTE CHANGES THIS SHIFT. PT CONTINUES TO REST IN BED, SLEEPING BUT AROUSABLE. PT NODS HEAD YES/NO TO ANSWER QUESTIONS, ALSO ABLE TO MOUTH SOME WORDS TO COMMUNICATE. PT FOLLOWS DIRECTION WHEN PROMPTED, MOVES EXTREMITIES EQUALLY BILATERALLY. PT DENIES PAIN THIS SHIFT. HR 90-120'S AFIB/FLUTTER, MAP >65. 8 SHILEY TRACH SUTURED IN PLACE WITH TRACH COLAR, SITE C/D. VENT SETTINGS AC/VC 18/400/5/30%, OXYGEN SATURATION >95%. ABDOMEN SOFT, BOWEL TONES ACTIVE THROUGHOUT. DOBHOFF IN PLACE TO LEFT NARES JEVITY 1.2 INFUSING AT GOAL RATE OF 45MLS/HR. RECTAL TUBE IN PLACE PATENT DRAINING LIQUID BROWN STOOL. SPEARS IN PLACE PATENT DRAINING YELLOW URINE TO GRAVITY. PIV IN PLACE TO LEFT HAND AND LFA. POWERGLIDE IN PLACE TO BALAJI SL. BED IN LOWEST POSITION, CARE CONTINUES.
[2024-06-13 05:09] LABS: Bun/Creatinine Ratio 57.6 (12.0-20.0); Calcium, Blood 8.2 mg/dL (8.5-10.1); Creatinine, Blood 0.66 mg/dL (0.60-1.20); Phosphorus, Blood 3.2 mg/dL (2.5-4.9); Potassium, Blood 3.9 mmol/L (3.5-5.5)
--- NOTE | 2024-06-13 11:11 | NUR ---
MIKIE WAS MOVED TO THE RECLINE WITH THE LIFT, HE TOLERATED VERY WELL. HE IS ASKING ABOUT HIS DOG, HE IS REQUESTING FOR THE DOG TO BE BROUGHT TO HIM, ESPECIALLY IF HE IS GOING TO BE MOVED TO [facility]. SPOKE WITH HIM ABOUT PEG TUBE, PT IN AGREEMENT.
--- NOTE | 2024-06-13 12:54 | NUR ---
NIECE WAS HERE VISITING, ASKED IF SHE HAD HIS PHONE, SHE SAID SHE DID IN HER HANDS. ASKED THAT THE PATIENT HAVE HIS PHONE BACK HE IS ALERT AND APPROPRI- ATE, SHE ARGUES THAT SHE NEEDS TO GET A HOLD OF PEOPLE, SHE WAS INFORMED THAT THE PHONE BELONGS TO THE PATIENT AND HE IS ENTITLED TO HAVE IT. HE HAD JUST SHARED WITH US THAT HE DID NOT WANT ANYONE EXCEPT HIS SON TO HAVE INFORMATION ABOUT HIM AT THIS TIME. ATTEMPTED TO RETRIEVE PHONE AGAIN, SHE STATED SHE WOULD GET IT CHARGED AND "BRING IT BACK TO HIM".
[2024-06-13] MEDS ORDERED: Zinc Sulfate 220 MG Cap (Provides 50MG) PT SCH (13:50)
--- NOTE | 2024-06-13 17:55 | NUR ---
MIKIE HAS BEEN ON SPONTANEOUS ON THE VENTILATOR THROUGHOUT THE DAY. HE HAS DONE WELL. HE HAS HAD A COUPLE OF MUCOUS PLUGS THAT CAUSED HIM SOME DISTRESS, HE WAS ABLE TO BE SUCTIONED AND CLEARED. ENCOURAGEMENT GIVEN ABOUT THE POSSIBILITY OF VIBRA. HE SPOKE WITH HIS SON AND WITH JOHNNIE FROM CASE MANAGEMENT. HE WAS ALSO BEING TAUGHT ABOUT THE USE OF HIS TRACH, HE CAN TOUCH IT AND HELP REPOSITION WHEN IT IS PULLING OR TUGGING. HE IS ASKING ABOUT EATING, EXPLAINED WE WILL WORK ON THAT TOMORROW WITH SPEECH THERAPY. HE IS ENCOURAGED BY THAT. VISITS FROM FAMILY TODAY. DID WELL.
[2024-06-14] VITALS (22 sets, daily range): BP systolic 112–163; BP diastolic 54–89
[2024-06-14 03:58] LABS: BASOPHILS ABSOLUTE AUTO 0.03 K/mm3 (0.00-0.23); BASOPHILS PERCENT AUTO 0 % (0-2); EOSINOPHILS ABSOLUTE AUTO 0.05 K/mm3 (0.00-0.68); EOSINOPHILS PERCENT AUTO 1 % (0-6); Hematocrit 24.6 % (37.0-53.0); IMMATURE GRAN ABSOLUTE AUTO 0.02 K/mm3 (0.00-0.10); IMMATURE GRAN PERCENT AUTO 0 % (0-1); LYMPHOCYTES PERCENT AUTO 9 % (21-46); MONOCYTES ABSOLUTE AUTO 0.75 K/mm3 (0.16-1.47); MONOCYTES PERCENT AUTO 9 % (4-13); Mean Corpuscular HGB 31.4 pg (26.0-34.0); Mean Corpuscular HGB Conc 32.5 g/dL (31.5-36.5); Mean Corpuscular Volume 97 fL (80-100); Mean Platelet Volume 10.4 fL (9.1-12.4); NEUTROPHILS ABSOLUTE AUTO 7.14 K/mm3 (1.96-9.15); NEUTROPHILS PERCENT AUTO 81 % (41-73); Platelet Count 232 K/mm3 (150-400); RDW Coefficient Variation 14.1 % (11.7-14.2); RDW Standard Deviation 49.2 fL (35.1-46.3); Red Blood Cell Count 2.55 M/mm3 (4.30-5.90); White Blood Cell Count 8.79 K/mm3 (4.00-11.30)
[2024-06-14 04:17] LABS: Bun/Creatinine Ratio 55.6 (12.0-20.0); Calcium, Blood 8.4 mg/dL (8.5-10.1); Creatinine, Blood 0.72 mg/dL (0.60-1.20); Magnesium, Blood 2.4 mg/dL (1.6-2.4); Phosphorus, Blood 3.5 mg/dL (2.5-4.9); Potassium, Blood 4.1 mmol/L (3.5-5.5)
--- NOTE | 2024-06-14 06:19 | NUR ---
SHIFT SUMMARY NO ACUTE EVENTS THIS SHIFT, TMAX 99.5F, MEDICATED WITH TYLENOL PER EMAR X1, DENIES PAIN OR DISCOMFORT WHEN ASKED, TURNED AND REPOSITIONED EVERY 2 HOURS, TRACH PATENT WITH VENT SPONT MODE FIO2 30%, SPO2 >90%, PT ALERT AND ORIENTED TO PERSON, PLACE, SITUATION, FOLLOWS COMMANDS, LEFT NARE NGT PATENT WITH JEVITY 1.2 INFUSING AT 45 ML/H, 30 ML H20 FLUSH EVERY 4 HOURS, SPEARS PATENT AND DRAINING TO GRAVITY, RECTAL TUBE PATENT AND DRAINING TO GRAVITY, HOB UP 45 30-45 DEGREES, SIDE RAILS UP X2 CALL LIGHT IN REACH
--- NOTE | 2024-06-14 10:52 | NUR ---
Spiritual Care Visit. At the request of Pts. attending nurse this roof assembler was called to bedside. Nurse is also present during our visit. Pt. (while trached) non verbally welcomed my visit. Facilitated a simplified life reviw. Pt. displayed evidence of being engaged and aware. Pt. welcomed prayer. Pt. grabbed this roof assembler's hand. Prayed with Pt. With a smile the Pt. displayed gratitude for the spiritual care visit. Updated nurses. Will remain available.
--- NOTE | 2024-06-14 15:00 | NUR ---
Pt mara treviño and said to let him try to swallow. Gave pt a sip of water, he did well. He was sitting upright in the chair and swallowed slowly. He took a couple more sips. Once he coughed the water was removed. NANOSYSTEMS ENGINEER had received order but was not able to make it to him. Will plan to see tomorrow.
--- NOTE | 2024-06-14 18:37 | NUR ---
PATIENT ALERT AND ORIENTED X4. UNABLE TO SPEAK DUE TO TRACH. PREFERS FOR STAFF TO READ HIS LIPS VS WRITING. ABLE TO WRITE 2 LETTERS THEN DECLINES TO WRITE ANYMORE. CAN NOD YES/NO AND RESPONDS APPROPRIATELY TO QUESTIONS. VSS SINUS RHYTHM HR 80-90S TODAY. LUNGS CLEAR TO AUSCULATION ANTERIORLY BUT RHONIC.COARSE POSTERIORLY CHANGED CANNULA, PATIENT CHANGED TO CPAP SPONTANEOUS SETTINGS APPROX 0830. TOLERATING WELL. DOBHOFF DISLODGED AND FOUND REMOVED TODAY. ABLE TO TAKE SMALL AMOUNTS OF LIQUID. ABDOMEN STILL MILDLY DISTENDED. 200ML OUT OF RECTAL TUBE TODAY STILL LIQUID/DARK BROWN/BLACK. SPEARS CATHETHER REMOVED APPROX 11AM, PATIENT DUE TO VOID. OFFERED TO ASSIST WITH URINAL MULTIPLE TIMES BUT PATIENT DECLINED. ABDOMEN REMAINS SOFT. PATIENT STOOD AT BEDSIDE X 4 TODAY AND TRANSFERRED TO RECLINER 3 PERSON MIN ASSIST. FAMILY INTO VISIT TODAY
[2024-06-14] MEDS ORDERED: Mupirocin Calcium Oint 1 GM TOP SCH (21:00)
[2024-06-15] VITALS (25 sets, daily range): BP systolic 84–140; BP diastolic 54–72
[2024-06-15 04:55] LABS: BASOPHILS ABSOLUTE AUTO 0.02 K/mm3 (0.00-0.23); BASOPHILS PERCENT AUTO 0 % (0-2); EOSINOPHILS ABSOLUTE AUTO 0.08 K/mm3 (0.00-0.68); EOSINOPHILS PERCENT AUTO 1 % (0-6); Hematocrit 22.9 % (37.0-53.0); Hemoglobin 7.4 g/dL (13.5-17.5); IMMATURE GRAN ABSOLUTE AUTO 0.03 K/mm3 (0.00-0.10); IMMATURE GRAN PERCENT AUTO 0 % (0-1); LYMPHOCYTES ABSOLUTE AUTO 0.73 K/mm3 (0.84-5.20); LYMPHOCYTES PERCENT AUTO 11 % (21-46); MONOCYTES ABSOLUTE AUTO 0.61 K/mm3 (0.16-1.47); MONOCYTES PERCENT AUTO 9 % (4-13); Mean Corpuscular HGB 31.4 pg (26.0-34.0); Mean Corpuscular HGB Conc 32.3 g/dL (31.5-36.5); Mean Corpuscular Volume 97 fL (80-100); NEUTROPHILS ABSOLUTE AUTO 5.44 K/mm3 (1.96-9.15); NEUTROPHILS PERCENT AUTO 79 % (41-73); Platelet Count 216 K/mm3 (150-400); RDW Coefficient Variation 14.5 % (11.7-14.2); RDW Standard Deviation 50.9 fL (35.1-46.3); Red Blood Cell Count 2.36 M/mm3 (4.30-5.90); White Blood Cell Count 6.91 K/mm3 (4.00-11.30)
[2024-06-15 05:17] LABS: Albumin, Blood 1.4 g/dL (3.4-5.0); Albumin/Globulin Ratio 0.3 (0.8-1.8); Bilirubin, Total 0.5 mg/dL (0.1-1.0); Bun/Creatinine Ratio 48.2 (12.0-20.0); Calcium, Blood 8.3 mg/dL (8.5-10.1); Creatinine, Blood 0.79 mg/dL (0.60-1.20); Globulin, Blood 5.2 g/dL (2.2-4.0); Magnesium, Blood 2.4 mg/dL (1.6-2.4); Phosphorus, Blood 3.6 mg/dL (2.5-4.9); Potassium, Blood 4.1 mmol/L (3.5-5.5); Total Protein, Blood 6.6 g/dL (6.4-8.2)
--- NOTE | 2024-06-15 06:44 | NUR ---
SHIFT SUMMARY NO ACUTE EVENTS THIS SHIFT, REMAINS ON VENT SPONT MODE FIO2 30%, SPO2 >90%, TOLERATING WELL, NODS HEAD YES OR NO TO QUESTIONS, REFUSES TO WRITE TO COMMUNICATED AND DIFFICULT TO READ LIPS DUE TO PT HAVING NO TEETH, VSS, PT DRINKING SIPS OF WATER AND APPLEJUICE WITHOUT DIFFICULTY, PT HAS NOT VOIDED THIS SHIFT, BLADDER SCAN DONE X3, STRAIGHT CATH X1 WITH 600 ML RUTH URINE RETURNED P[ER BLADDER MANAGEMENT ORDERS, LAST BLADDER SCAN DONE AT 0440 WITH NOTED 135 ML IN BLADDER, PT DENIES NEED TO VOID, MALE P[place]ICK REMAINS IN PLACE WITH PT ENCOURAGED TO VOID, PT NODS YES IN UNDERSTANDING, DENIES C/O PAIN OR NEEDS, RECTAL TUBE IN PLACE, CALL LIGHT IN REACH
[2024-06-15] MEDS ORDERED: Tamsulosin HCl 0.4 MG Cap PO SCH (09:00)
--- NOTE | 2024-06-15 09:22 | NUR ---
[facility] SCHEDULED FOR 1030 HOLDING PO MEDS UNTIL POST SWALLOW EVALUATION, MD AWARE.
[2024-06-15 09:33] LABS: Vancomycin, Trough 18.9 ug/mL (5.0-10.0)
--- NOTE | 2024-06-15 10:35 | NUR ---
Spiritual care visit conducted. Pt is awake and alert but has a trach, limiting ability to communicate verbally. Pt displays a friendly demeanor and responds to yes/no questions. Pt is claims to be in a positive state. Prayer offered to pt. Pt appeared more positive following the visit and likely would have been receptive to more attempted conversation. Visit cut short due to pt being taken to a swallow evaluation.
[2024-06-15] MEDS ORDERED: Dextrose 5% 1,000 ML IV SCH (12:30)
--- NOTE | 2024-06-15 13:56 | NUR ---
PATIENT TAKEN TO [facility] AT 1030 SEE REPORT FOR FINDINGS. PATIENT STRICT NPO. 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 PLAN FOR PEG TUBE PLACEMENT PER DR PAINTER, PT AGREEABLE TO PLAN. RECTAL TUBE D/C'D TOLERATED WELL URINARY RETENTION ON GOING, BLADDER SCAN @ 311, STRAIGHT CATH 300ML OUT (SECOND STRAIGHT CATH SINCE REMOVAL 06/14/24 AT 1100). PATIENT UP TO WHEELCHAIR 2 PERSON ASSIST, REQUIRED A LOT OF ENCOURAGEMENT FOR TRANSPORT TO [facility].
--- NOTE | 2024-06-15 17:31 | NUR ---
SHIFT SUMMARY PATIENT ALERT AND ORIENTED X 4. DIFFICULTY MAKING HIS NEEDS KNOWN DUE TO INABILITY TO SPEAK FROM NEW TRACH. CALLS APPROPRIATELY. NSR THIS AM, UNABLE TO GIVE AM ORAL MEDS NPO WITH SIPS AWAITING MBSS. STRICT NPO AFTER MBSS. SEE REPORT FOR DETAILS. HR INCREASED APPROX 1030 PRN METOPROLOL ADMINISTERED. AFIB/AFLUTTER CARDIZEM GTT STARTED. SBP 100-110S- STABLE. LUNGS RHONCHI/COARSE THROUGH OUT TODAY. SOME THICK SECRETIONS POST SWALLOW STUDY. STRAIGHT CATH'D APPROX 1430 DUE TO URINARY RETENTION RECTAL TUBE ZERO OUTPUT- REMOVED TODAY, ABDOMEN IS SOFT/NON TENDER WTIH HYPOACTIVE BOWEL TONES. UP TO W/C TODAY FOR MBSS AND WORKED WITH HANDLE SEWER, OT, PT TODAY. UPDATES GIVEN TO BROTHER KRANTHI PER PT REQUESTED THAT HE CONTACT HIS NIECE TO OBTAIN HIS PHONE FOR USE. SURGERY BY FOR CONSULT FOR PEG TUBE COMPLETED PLAN: OG TUBE TOMORROW PER DR MCCARTHY, IF STABLE AND OG FUNCTIONAL PER EARLENE VIBRA CAN ACCEPT IF BEDS REMAIN OPEN.
--- NOTE | 2024-06-15 22:12 | NUR ---
UPDATE NOTE URINE CLOUDY WITH SEDIMENT IN TUBING, URINE COLLECTED AND SENT FOR [facility] CHARGE NURSE AWARE
[2024-06-15 22:16] LABS: Source, Urine Foley catheter
[2024-06-15 22:26] LABS: Bilirubin, Urine Neg (Neg); Blood, Urine 5+ (Neg); Glucose Qualitative, Urine Neg (Neg); Ketones, Urine Neg (Neg); Leukocyte Esterase, Urine Neg (Neg); Nitrite, Urine Neg (Neg); Protein, Urine 3+ (Neg); Urobilinogen, Urine NORM (Normal)
[2024-06-15 22:43] LABS: Appearance, Urine Turbid (Clear); Color, Urine Yellow (P-Yellow)
[2024-06-15 22:50] LABS: Squamous Epithelial Cells Few /hpf (Few); White Blood Cells, Urine 0-2 /hpf (0-5)
[2024-06-15 22:51] LABS: Amorphous Heavy (0-Heavy); Bacteria Few /hpf
[2024-06-15 22:54] LABS: Granular Casts 25-50 /lpf (0)
[2024-06-16] VITALS (79 sets, daily range): BP systolic 79–125; BP diastolic 38–99
[2024-06-16 03:59] LABS: Hematocrit 22.3 % (37.0-53.0); Hemoglobin 7.2 g/dL (13.5-17.5); Mean Corpuscular HGB Conc 32.3 g/dL (31.5-36.5); Mean Corpuscular Volume 96 fL (80-100); Mean Platelet Volume 10.6 fL (9.1-12.4); Platelet Count 191 K/mm3 (150-400); RDW Coefficient Variation 14.6 % (11.7-14.2); RDW Standard Deviation 50.5 fL (35.1-46.3); Red Blood Cell Count 2.32 M/mm3 (4.30-5.90)
--- NOTE | 2024-06-16 06:24 | NUR ---
SHIFT SUMMARY PT ALERT AND ORIENTED TO SELF, PLACE,SITUATION, FOLLOWS COMMANDS, MOUTHS WORDS AND POINTS FOR NEEDS, DOES NOT WRITE ON BOARD, 8.0 SHILEY TRACH PATENT, ON VENT SPOINT MODE FIO2 30%, WITH SPO2>90%, PT TOLERATING WELL, TMAX 99.8F, MAP>65, REMAINS ON CARDIZEM GTT TITRATED DOWN TO 5 MG/HR WITH HR 60-80s CONTINUES TO FLUCUATE FROM [id number], PT UNABLE TO VOID SINCE SPEARS CATH REMOVED 2/6 AT 1100, STRAIGHT CATH X2 AND AFTER BLADDER SCAN DONE AT 2030 WITH NOTED 400 ML, AND PT STATES HE DOESNT FEEL LIKE HE NEEDS TO GO, 16 FR TEMP SENSE SPEARS CATH PLACED WITHOUT DIFFICULTY, 400 ML YELLOW URINE RETURNED IMMEDIATELY, NOTED AT 2210 URINE CLOUDY WITH SEDIMENT IN TUBING, UA SENT, PT INCONTINENT X3 LOOSE WATERY BM, TURNED AND REPOSITIONED EVERY 2 HOURS, SIDE RAILS UP X2, HOB UP 30 DEGREES, D5 INFUSING AT 50 M L/HR, CALL LIGHT IN REACH
--- NOTE | 2024-06-16 08:40 | NUR ---
AM NOTE... ASSUMED CARE OF PT AT 0700, PT IS A&Ox4, 8.0 SHILEY TRACH IS STABLE, A SMALL AMOUNT OF DRIED BLOOD NOTED AROUND THE SITE. PT DENIES ANY PAIN. PT IS ON SP 9/5 AND 30% WITH O2 SATS>95%. L/S CLEAR T/O DIM IN THE BASES. PT IS IN SR W/FIRST DEGREE IN THE 70'S, CARDIZEM DRIP RUNNING AT 5MG/HR AT THIS TIME. BP IS SOFT BUT STABLE WITH MAPS>70. PT HAS TRACE EDEMA TO HIS BLE. PLANNED EGD W/PEG TUBE PLACEMENT THIS AFTERNOON. SPEARS IS PATENT AND DRAINING CLOUDY YELLOW URINE TO GRAVITY.
[2024-06-16] MEDS ORDERED: Lactated Ringer's 1,000 ML IV SCH (11:15)
--- NOTE | 2024-06-16 11:54 | NUR ---
PT IN ICU 7. CONSENTED FOR PEG TUBE. PT IS AWAKE W/ A TACH IN PLACE
--- NOTE | 2024-06-16 11:55 | NUR ---
Patient confirms NPO status and agrees with scheduled surgery. Pre-Op teaching done. Pt verbalizes understanding. History, Chart, Medications and Allergies reviewed before start of procedure.
--- NOTE | 2024-06-16 12:03 | NUR ---
06/16/24 1203 Ladarius Santos MONITOR INTACT WITH CONTINUOUS PULSE OXIMETRY, CONTINUOUS END TITAL CO2, AND INTERMITTENT BLOOD PRESSURE.AND EKG. ANESTHESIA PER DR. DSOUZA
[2024-06-16] MEDS ORDERED: Albumin (Human) 12.5gm/250ml 250 ML IV ONE (13:05)
--- NOTE | 2024-06-16 14:44 | NUR ---
PT UPDATE... PT HAD EGD W/PEG TUBE PLACMENT UNDER ANSETHESIA FROM -1230 TODAY. PT BECAME HYPOTENSIVE AND HR WENT FROM 60'S-70'S TO THE MID 50'S AFTER THE PROCEDURE WAS DONE. THE CARDIZEM GTT WAS STOPPED AND PT WAS GIVEN A 500MLS BOLUS OF LR AND 250MLS OF ALBUMIN. PT'S HR AND BP IMPROVED. PEG TUBE SITE IS C/D/I, PT DENIES ANY ABD PAIN AT THIS TIME.
[2024-06-16] MEDS ORDERED: Rocuronium Bromide 10 MG/ML 5ML Injection IV ONE (15:38)
[2024-06-16] MEDS ORDERED: Phenylephrine HCl 40 MCG/ML-NS 10MLSYR (0.4MG/ML) IV ONE (15:38)
[2024-06-16] MEDS ORDERED: Propofol 10mg/ml 20 ml Vial (Procedural) IV ONE (15:38)
--- NOTE | 2024-06-16 16:28 | NUR ---
Spiritual care visit conducted. Pt is awake and alert. Health And Safety Inspector Jerad is also present. Pt is still unable to communicate verbally because of trach. Pt is open to conversation. Assessed pt's current state of being using yes/no questions to accomdate for communication barriers. Pt reports feeling well. Prayed with pt and he expressed gratitude by mouthing "thank you." Pt appeared uplifted by the visit.
--- NOTE | 2024-06-16 18:13 | NUR ---
SHIFT SUMMARY... PEG TUBE PLACED BY DR. MCCARTHY, SITE IS STABLE, NO BLEEDING, SWELLING. DRESSING IS C/D/I. PT DENIES PAIN. VS STABLE. PT CONTINUES TO BE IN SR WHILE OFF THE CARDIZEM GTT. TUBE FEEDS TO START TONIGHT PER ORDERS. SPEARS IS PATENT AND DRAINING TO GRAVITY. TRACH CARE DONE THIS SHIFT. WILL REPORT TO ONCOMING RN.
[2024-06-17] VITALS (23 sets, daily range): BP systolic 96–136; BP diastolic 56–83
--- NOTE | 2024-06-17 02:12 | NUR ---
TUBE FEED STARTED TF AT 25ML/H PER ORDER AT 2029. AROUND 2229 PT C/O ABD DISCOMFORT "LIKE FEELING TOO FULL". TF WERE STOPPED TO SEE IF PT NOTICED IMPROVEMENT. AT 0100 PT STATED HE FELT LESS DISCOMFORT, TF WERE RESTARTED AT 0100 AT 15 ML/H AND WILL CONTINUE TO TITRATE TO GOAL T/O THIS SHIFT BASED ON PT ASSESSMENT.
--- NOTE | 2024-06-17 04:34 | NUR ---
TF UPDATE... TF WAS INCREASED FROM 15 ML TO 25 ML/H AT 0230. AT 0430 PT REPORTED THE SAME DISCOMFORT PREVIOUS NOTE. TF PLACED ON SB FOR NOW UNTIL DR CAN REEVALUATE LATER THIS AM.
--- NOTE | 2024-06-17 05:48 | NUR ---
SHIFT SUMMARY PT A/OX4, UNABLE TO SPEAK R/T NEW TRACH. ABLE TO ANSWER QUESTIONS BY NODDING/SHAKING HIS HEAD AND MOUTHING WORDS. ABLE TO USE CALL LIGHT APPROPRIATLY AND MAKE NEEDS KNOWN. ON TUBE DRAW HELPER, HR 60-80'S, BP STABLE. VENT SETTINGS SPONT 9/5/30%, SATS >94%. SPEARS PATENT AND DRAINING TO GRAVITY. ONE BM THIS SHIFT. NEW PEG TUBE, DRESSING C/D/I, SEE NOTES ABOUT TUBE FEED ON SB. D5 INFUSING AT 50ML/H TO PG.
[2024-06-17] MEDS ORDERED: Protein Supplement 30 ML UD PT SCH (09:00)
--- NOTE | 2024-06-17 18:12 | NUR ---
Summary. Pt continuing to make small improvements. On trach collar most of shift, up to chair this afternoon. Not tolerating intake through peg tube well yet, Reglan scheduled to help with motility. Pt able to communicate with speaking valve now. Afib rhythm noted this afternoon on monitor, physician aware. No acute events this shift. See chart for further details.
[2024-06-17] MEDS ORDERED: Doxazosin Mesylate 2 MG Tab PO SCH (21:00)
[2024-06-17] MEDS ORDERED: Metoclopramide HCl 5MG / ML 2ML Vial IV SCH (21:00)
[2024-06-17] MEDS ORDERED: Metoprolol Tartrate 50 MG Tab PT SCH (23:00)
[2024-06-18] VITALS (22 sets, daily range): BP systolic 103–144; BP diastolic 54–70
[2024-06-18 03:41] LABS: Hematocrit 23.1 % (37.0-53.0); Hemoglobin 7.6 g/dL (13.5-17.5); Mean Corpuscular HGB 31.1 pg (26.0-34.0); Mean Corpuscular HGB Conc 32.9 g/dL (31.5-36.5); Mean Corpuscular Volume 95 fL (80-100); Mean Platelet Volume 10.2 fL (9.1-12.4); Platelet Count 180 K/mm3 (150-400); RDW Coefficient Variation 14.1 % (11.7-14.2); RDW Standard Deviation 47.5 fL (35.1-46.3); Red Blood Cell Count 2.44 M/mm3 (4.30-5.90); White Blood Cell Count 7.77 K/mm3 (4.00-11.30)
[2024-06-18 03:59] LABS: Bun/Creatinine Ratio 24.6 (12.0-20.0); Calcium, Blood 8.1 mg/dL (8.5-10.1); Creatinine, Blood 1.18 mg/dL (0.60-1.20); Potassium, Blood 3.5 mmol/L (3.5-5.5)
--- NOTE | 2024-06-18 05:11 | NUR ---
SHIFT SUMMARY PT A/OX4, CALLS APPROPRIATLY. HR 70-80'S, BP STABLE, SINUS RHYTHM ON MONITOR. NEW TRACH, VENT SETTINGS 9/5/30%, SATS > 93%. SPEARS PATENT AND DRAINING TO GRAVITY. DECENT UOP NOTED. NO BM THIS SHIFT. TF STILL ON SB R/T C/O DISCOMFORT AND FULLNESS T/O THIS SHIFT. MEDICATED FOR PAIN X2 WITH PRN FENTANYL. PT REPORTED SOME PAIN RELIEF AFTER SECOND DOSE OF 25 MCG. AFEBRILE. NO ACUTE EVENTS, CALL LIGHT IN REACH.
[2024-06-18] MEDS ORDERED: Amiodarone HCl 200 MG Tab PT SCH (09:00)
[2024-06-18 09:31] LABS: Vancomycin, Trough 23.2 ug/mL (5.0-10.0)
[2024-06-18] MEDS ORDERED: LORazepam Conc 2 MG/ML - 1ML UDC PT PRN (10:10)
[2024-06-18] MEDS ORDERED: Banana Flakes/Tos 1 EA Powder Pack PT SCH (14:45)
--- NOTE | 2024-06-18 18:15 | NUR ---
Summary. Pt did well this shift. On trach collar most of the day, VS stable. Pt did complain of feeling very anxious despite good 02 sats, prn ativan added to chart for comfort, used one dose with good effect. Pt up to chair for several hours this shift. No acute events, see chart for further details.
[2024-06-18] MEDS ORDERED: LORazepam 0.5 MG Tab PT PRN (19:35)
[2024-06-19] VITALS (14 sets, daily range): BP systolic 94–133; BP diastolic 48–71
[2024-06-19 05:56] LABS: Bun/Creatinine Ratio 26.1 (12.0-20.0); Calcium, Blood 8.1 mg/dL (8.5-10.1); Creatinine, Blood 1.15 mg/dL (0.60-1.20); Magnesium, Blood 2.6 mg/dL (1.6-2.4); Potassium, Blood 3.7 mmol/L (3.5-5.5)
--- NOTE | 2024-06-19 06:48 | NUR ---
END OF SHIFT SUMMARY NO ACUTE EVENTS OVERNIGHT; HE WAS ABLE TO SLEEP FOR ABOUT 5HOURS. HE IS A/O X4 AND ABLE TO COMMUNICATE BY POINTING AND MOUTHING WORDS; ATIVAN GIVEN X1 FOR ANXIETY AT THE START OF SHIFT. FENTANYL GIVEN ONCE FOR INCISIONAL PAIN R/T PEG TUBE. AFEBRILE. PLACED BACK ON VENT RIGHT AT THE BEGINING OF SHIFT; VENT SETTINGS SPONT 8/5, FIO2 30%, Vt 300-400; 8.0 TRACH NOTED, INNER CANNULA CHANGED BY RT AT BEGINING OF SHIFT. NSR WITH HR 70-90'S. SBP 100-120. JEVITY 1.5 INFUSING VIA PEG TUBE AT 50ML/HR (GOAL) WITH 30ML WATER FLUSHES Q4HR; TWO SMALL LOOSE BM THIS SHIFT. SPEARS IN PLACE AND DRAINING TO GRAVITY. POWERGLIDE TO LUE PATENT WITH D5 INFUSING AT 50ML/HR. WILL REPORT TO AM RN WHEN AVAILABLE.
[2024-06-19] MEDS ORDERED: Vancomycin HCL 1,000 MG in NS 250 ML IV SCH (09:00)
[2024-06-19] MEDS ORDERED: NS IV SCH (09:00)
[2024-06-19] MEDS ORDERED: CEFTAROLINE FOSAMIL ACETATE IV SCH (09:00)
[2024-06-19] MEDS ORDERED: ACET325 PT (10:08)
[2024-06-19] MEDS ORDERED: ALBU2.5V5 INH (10:10)
[2024-06-19] MEDS ORDERED: Amiodarone HCl200 MG PT (10:10)
[2024-06-19] MEDS ORDERED: BANATROL PLUS1 EAC1 PT (10:12)
[2024-06-19] MEDS ORDERED: DIGOX125 MC1 PT (10:13)
[2024-06-19] MEDS ORDERED: BISA10S PR (10:13)
[2024-06-19] MEDS ORDERED: Cardura1 MG PT (10:15)
[2024-06-19] MEDS ORDERED: ENOX40I SC (10:15)
[2024-06-19] MEDS ORDERED: ATIVAN0.5 MG PT (10:16)
[2024-06-19] MEDS ORDERED: METO5A PT (10:16)
[2024-06-19] MEDS ORDERED: METO50 PT (10:17)
[2024-06-19] MEDS ORDERED: MUPIROCIN2210 (10:28)
[2024-06-19] MEDS ORDERED: PANT40 PO (10:48)
[2024-06-19] MEDS ORDERED: LIQUICAL PLUS480 ML PT (10:49)
[2024-06-19] MEDS ORDERED: MIRALAX17 GM PO (10:49)
[2024-06-19] MEDS ORDERED: Sodium Chloride15 M1 INH (10:50)
[2024-06-19] MEDS ORDERED: VANCOMYCIN HCL1 G1 (10:55)
[2024-06-19] MEDS ORDERED: ZINC220 PT (10:55)
[2024-06-19] MEDS ORDERED: [UNRECOGNIZED DRUG - OTHER] (10:56)
[2024-06-19] MEDS ORDERED: [UNRECOGNIZED DRUG - OTHER] PO (10:57)
[2024-06-19] MEDS ORDERED: IPRAT-ALBUT 0.5-3 ML INH (11:04)
--- NOTE | 2024-06-19 11:32 | NUR ---
SHIFT AND TRANSFER REPORT PATIENT ALERT AND ORIENTED X4. CALLS APPROPRIATELY AND ABLE TO MAKE HIS NEEDS KNOWN. VSS. TRACH 8.0 FINSTRATED 12/12 @ FIO2 30% ON VENT. PATIENT REFUSED TRACH COLLAR THIS AM AND REFUSED TO SIT UP IN HIS CHAIR X 3 EVEN AFTER PREMEDICATING. LUNGS ARE CLEAR/DIM. NORMOACTIVE BOWEL TONES. LG LOOSE STOOL THIS AM. PT HAS GOOD BED MOBILITY WITH CUES. ABLE TO ROLL SIDE TO SIDE WITH MINIMAL ASSISTANCE. USES FWW WITH MIN/MOD ASSIST. MOTIVATION IS FAIR. FAMILY INTO VISIT TODAY. PLAN TO TRANSFER CARE AT [facility] PORT[facility] VENT.
--- NOTE | 2024-06-19 12:37 | NUR ---
TRANSFER TRANSPORT HERE TO MEDICINE TECH PATIENT. REPORT GIVEN TO [facility]IL [facility] AT [phone].
== END 2024-06-19 13:00 | DRG 4 ==
LOC: ER 08:19 → ERHOLD 13:56 → MEDS 18:09 → PCU 05-26 09:47 → ICUE 05-26 09:47 → MEDS 05-26 09:47 → ICUE 05-26 09:47 → MEDS 05-26 09:48 → PCU 05-26 19:50 → ICUE 05-27 21:23
PROVIDERS: Emergency Medicine; Internal Medicine; Internal Medicine Critical Care Medicine; Internal Medicine Interventional Cardiology; Physician Assistant; Student in an Organized Health Care Education/Training Program; ADMIT Internal Medicine
PROC: 3E03329 Introduction of Other Anti-infective into Peripheral Vein, Percutaneous Approach (ICD-10-PCS; 2024-05-25)
PROC: 5A09357 Assistance with Respiratory Ventilation, Less than 24 Consecutive Hours, Continuous Positive Airway Pressure (ICD-10-PCS; 2024-05-26)
PROC: 4A133R1 Monitoring of Arterial Saturation, Peripheral, Percutaneous Approach (ICD-10-PCS; 2024-05-26)
PROC: 30233N1 Transfusion of Nonautologous Red Blood Cells into Peripheral Vein, Percutaneous Approach (ICD-10-PCS; 2024-05-28)
PROC: 0BH17EZ Insertion of Endotracheal Airway into Trachea, Via Natural or Artificial Opening (ICD-10-PCS; 2024-05-28)
PROC: 02HV33Z Insertion of Infusion Device into Superior Vena Cava, Percutaneous Approach (ICD-10-PCS; 2024-05-28)
PROC: 5A1945Z Respiratory Ventilation, 24-96 Consecutive Hours (ICD-10-PCS; 2024-05-28)
PROC: 3E043XZ Introduction of Vasopressor into Central Vein, Percutaneous Approach (ICD-10-PCS; 2024-05-28)
PROC: 5A1955Z Respiratory Ventilation, Greater than 96 Consecutive Hours (ICD-10-PCS; 2024-05-31)
PROC: 0BH17EZ Insertion of Endotracheal Airway into Trachea, Via Natural or Artificial Opening (ICD-10-PCS; 2024-05-31)
PROC: 0DJ08ZZ Inspection of Upper Intestinal Tract, Via Natural or Artificial Opening Endoscopic (ICD-10-PCS; 2024-06-05)
PROC: 0B113F4 Bypass Trachea to Cutaneous with Tracheostomy Device, Percutaneous Approach (ICD-10-PCS; principal; 2024-06-10)
PROC: 0BJ08ZZ Inspection of Tracheobronchial Tree, Via Natural or Artificial Opening Endoscopic (ICD-10-PCS; 2024-06-10)
DX: A41.89 Other specified sepsis (principal); J10.08 Influenza due to other identified influenza virus with other specified pneumonia; R65.21 Severe sepsis with septic shock; J15.212 Pneumonia due to Methicillin resistant Staphylococcus aureus; J96.01 Acute respiratory failure with hypoxia; K26.4 Chronic or unspecified duodenal ulcer with hemorrhage; J96.02 Acute respiratory failure with hypercapnia; J44.0 Chronic obstructive pulmonary disease with (acute) lower respiratory infection; I48.92 Unspecified atrial flutter; I42.8 Other cardiomyopathies; D62 Acute posthemorrhagic anemia; J44.1 Chronic obstructive pulmonary disease with (acute) exacerbation; Z99.11 Dependence on respirator [ventilator] status; R13.12 Dysphagia, oropharyngeal phase; R33.9 Retention of urine, unspecified; I48.91 Unspecified atrial fibrillation; I25.10 Atherosclerotic heart disease of native coronary artery without angina pectoris; E88.09 Other disorders of plasma-protein metabolism, not elsewhere classified; I11.0 Hypertensive heart disease with heart failure; F17.290 Nicotine dependence, other tobacco product, uncomplicated; J43.9 Emphysema, unspecified; E78.5 Hyperlipidemia, unspecified; Z60.2 Problems related to living alone; M54.2 Cervicalgia; G89.29 Other chronic pain; I50.9 Heart failure, unspecified; Z79.02 Long term (current) use of antithrombotics/antiplatelets; I25.2 Old myocardial infarction; Z95.5 Presence of coronary angioplasty implant and graft; Z78.1 Physical restraint status
CPT/HCPCS: 31500; 36415; 36430; 36556; 36600; 51701; 51702; 71045; 71046; 71250; 71260; 74230; 80048; 80053; 80069; 80162; 80202; 81001; 82270; 82330; 82803; 82947; 83605; 83690; 83735; 83880; 84100; 84443; 84478; 84484; 85014; 85018; 85025; 85027; 85379; 85610; 85730; 86850; 86900; 86901; 86923; 87040; 87070; 87077; 87147; 87186; 87205; 87338; 87428-QW; 92526; 92610; 92611; 93005; 93010; 93306; 93308; 93321; 94002; 94003; 94640; 94660; 94664; 94667; 94760; 94762; 96372; 96374; 96376; 97110; 97162; 97167; 97530; 99285-25; A9270; C1751; C1769; G0378; J0282; J0612; J0692; J0696; J1160; J1644; J1650; J1940; J2060; J2250; J2270; J2371; J2470; J2704; J2765; J2919; J3010; J3370; J3475; J7030; J7040; J7050; J7060; J7070; J7120; P9016; P9045; P9047; Q9967